=== PATIENT | female | born 1960 | race Caucasian/White ===

== ENCOUNTER → 2016-05-07 | Outpatient (CLI) | payer BC | LOC: WI 08:04 | PROVIDERS: ATTEND Physician Assistant | DX: Z12.31 Encounter for screening mammogram for malignant neoplasm of breast (principal) | CPT/HCPCS: 77067; G0202 ==

== ENCOUNTER → 2016-08-13 | Outpatient (CLI) | payer BC ==
--- NOTE | 2016-08-13 14:34 | RADIOLOGY REPORT (SQ) ---
EXAM DESCRIPTION: LUMBAR SPINE COMPLETE COMPLETED DATE/TIME: 08/13/2016 2:28 pm REASON FOR STUDY: LOW BACK PAIN M54.5 LOW BACK PAIN COMPARISON: None. NUMBER OF VIEWS: Five views including obliques. TECHNIQUE: AP, lateral, oblique, and sacral radiographic images acquired of the lumbar spine. LIMITATIONS: None. FINDINGS: MINERALIZATION: Normal. SEGMENTATION: Normal. No transitional anatomy. ALIGNMENT: Normal. VERTEBRAE: Maintained height. No fracture or worrisome bone lesion. DISCS: There is very mild disc space narrowing at L3-L4. POSTERIOR ELEMENTS: Pedicles and facets are intact. No pars defect or posterior arch defects. HARDWARE: None in the spine. PARASPINAL SOFT TISSUES: Normal. PELVIS: Intact as visualized. No fractures or worrisome bone lesions. SI joints intact. OTHER: No other significant finding. IMPRESSION: Mild disc space narrowing at L3-L4. No other significant findings. TECHNICAL DOCUMENTATION: JOB ID: [id number] [employer]- All Rights Reserved
== END ==
LOC: OD 14:06
PROVIDERS: ATTEND Physician Assistant
DX: M54.5 Low back pain (principal)
CPT/HCPCS: 72110

== ENCOUNTER 2016-09-01 11:08 | Day surgery (SDC) | payer BC ==
[~2016-09-01 11:08] MED LIST: PROPOFOL INJ 200 MG/20 ML VIAL IV ONE
--- NOTE | 2016-09-01 13:02 | Operative Report ---
Operative Report DATE OF SURGERY: 09/01/16 Operative Report: The risks, benefits and alternatives of the procedure including risks of bleeding, perforation requiring surgery are explained to the patient detail and informed consent is obtained. Patient was taken back to the endoscopy suite and placed in the left, lateral decubital position. Timeout was called. Propofol medication was administered. A rectal examination was done which did not reveal any masses, tears or fissures. An Olympus videoscope was inserted into the patient's rectum. The scope was then carefully guided all the way to the cecum. The cecum was identified by the usual anatomical landmarks including the ileocecal valve as well as the appendiceal office. Photodocumentation is obtained. Prep was good. The scope was then sequentially pulled back via the rest segments of the colon including the ascending colon, hepatic flexure, transverse colon, splenic flexure, descending colon and finding to the rectosigmoid portions of the colon. Retroflexion maneuver was performed. The risks benefits and alternatives of the procedure explained to the patient in detail and informed consent is obtained. A GIF Olympus video scope was inserted into the patient's mouth and hypopharynx, the esophagus is identified intubated and insufflated, the scope was then advanced through the esophagus stomach and duodenum ,retroflexion maneuver is done, the esophagus stomach and first and second portions of the duodenum examined PREOPERATIVE DIAGNOSIS: Colorectal cancer screening. Noncardiac chest pain rule out peptic ulcer disease. POSTOPERATIVE DIAGNOSIS: Diverticulosis. Internal hemorrhoids. Small polyp in the sigmoid status post removal with biopsy forceps. Gastritis status post biopsy rule out Helicobacter pylori OPERATION: Colonoscopy with biopsy. EGD with biopsy SURGEON: CHAGO DE LOS SANTOS ANESTHESIA: LMAC TISSUE REMOVED OR ALTERED: Gastric mucosal specimen obtained. Polyp retrieved COMPLICATIONS: None. ESTIMATED BLOOD LOSS: None. INTRAOPERATIVE FINDINGS: As described above. PROCEDURE: Patient tolerated the procedure well. No immediate postprocedure complications are noted. Patient discharged in good condition. Discharge date 09/01/2016. Discharge diet: Regular. Discharge activity: Regular. 2-3 week follow-up to discuss findings. Patient is instructed to call the office or proceed to the emergency room should there be any further problems or questions. Surveillance colonoscopy in 5 years. We will await pathology of the polyp.
[2016-09-01 13:25] VITALS: BP 111/56
== END 2016-09-01 13:30 | disposition home or self-care (01) ==
LOC: END 11:08
PROVIDERS: ATTEND Internal Medicine Gastroenterology
PROC: 0DB68ZX Excision of Stomach, Via Natural or Artificial Opening Endoscopic, Diagnostic (ICD-10-PCS; principal; 2016-09-01 14:30)
PROC: 0DBN8ZX Excision of Sigmoid Colon, Via Natural or Artificial Opening Endoscopic, Diagnostic (ICD-10-PCS; 2016-09-01 14:30)
DX: Z12.11 Encounter for screening for malignant neoplasm of colon (principal); K57.30 Diverticulosis of large intestine without perforation or abscess without bleeding; K64.8 Other hemorrhoids; K63.5 Polyp of colon; K29.50 Unspecified chronic gastritis without bleeding; I10 Essential (primary) hypertension; R07.89 Other chest pain; E87.5 Hyperkalemia; M19.90 Unspecified osteoarthritis, unspecified site; F32.9 Major depressive disorder, single episode, unspecified; F41.9 Anxiety disorder, unspecified; Z87.891 Personal history of nicotine dependence; Z79.899 Other long term (current) drug therapy
CPT/HCPCS: 43239; 45380; 88342 ×2; 88305 ×2; J2704; 740

== ENCOUNTER → 2017-01-12 | Outpatient (CLI) | payer BC ==
--- NOTE | 2017-01-12 10:35 | RADIOLOGY REPORT (SQ) ---
EXAM DESCRIPTION: PARANASAL SINUSES COMPLETED DATE/TIME: 01/12/2017 10:02 am REASON FOR STUDY: CHRONIC SINUSITIS (J32.9) R06.00 DYSPNEA, UNSPECIFIED COMPARISON: None. NUMBER OF VIEWS: Three views. TECHNIQUE: Images of the paranasal sinuses acquired. LIMITATIONS: None. FINDINGS: ORBITS: No fracture. No foreign body. SINUSES: No mucosal thickening. No air fluid levels. FACIAL BONES: No fracture. OTHER: Mild leftward nasal septal deviation IMPRESSION: NO FOREIGN BODY OR FRACTURE. NO PLAIN RADIOGRAPHIC EVIDENCE FOR SINUS DISEASE. TECHNICAL DOCUMENTATION: JOB ID: [id number] [employer]- All Rights Reserved
--- NOTE | 2017-01-12 10:52 | RADIOLOGY REPORT (SQ) ---
EXAM DESCRIPTION: CHEST PA/LAT COMPLETED DATE/TIME: 01/12/2017 10:02 am REASON FOR STUDY: DYSPNEA (R06.00) COMPARISON: None. EXAM PARAMETERS: NUMBER OF VIEWS: two views TECHNIQUE: Digital Frontal and Lateral radiographic views of the chest acquired. RADIATION DOSE: NA LIMITATIONS: none FINDINGS: LUNGS AND PLEURA: Chronic appearing blunting left lateral costophrenic sulcus with adjacen t lung parenchymal scarring. No acute infiltrates. No pleural effusion. No pneumothorax. MEDIASTINUM AND HILAR STRUCTURES: Moderate size retrocardiac hiatal hernia. No masses or contour abn ormalities. HEART AND VASCULAR STRUCTURES: Heart normal size. No evidence for failure. BONES: No acute findings. HARDWARE: None in the chest. OTHER: No other significant finding. IMPRESSION: Chronic appearing pleural thickening and lung base bandlike scarring in the left lateral costophrenic sulcus. No acute infiltrates. TECHNICAL DOCUMENTATION: JOB ID: [id number] [employer]- All Rights Reserved
--- NOTE | 2017-01-12 11:38 | RADIOLOGY REPORT (SQ) ---
EXAM DESCRIPTION: NM LUNG VENT/PERF SCAN COMPLETED DATE/TIME: 01/12/2017 11:03 am REASON FOR STUDY: DYSPNEA (R06.00) R06.00 DYSPNEA, UNSPECIFIED COMPARISON: None. RADIONUCLIDE AND DOSE: 5 millicuries TC-99m MAA Intravenous 30 millicuries TC-99m DTPA Inhaled aerosol TECHNIQUE: Eight views of the lungs acquired post ventilation of DTPA aerosol. Eight matching views of the lungs acquired following injection of MAA. LIMITATIONS: None. FINDINGS: VENTILATION: Symmetric and homogeneous distribution of DTPA aerosol during ventilatory pha se. No significant areas of photopenia. PERFUSION: Perfusion images with normal homogenous activity and no wedge-shaped or segmental defects. No ventilation-perfusion mismatches. OTHER: No other significant finding. IMPRESSION: NORMAL VENTILATION-PERFUSION LUNG SCAN. NEGATIVE FOR PULMONARY EMBOLI. TECHNICAL DOCUMENTATION: JOB ID: [id number] [employer]- All Rights Reserved
== END ==
LOC: RAD 09:35
PROVIDERS: ATTEND Internal Medicine Pulmonary Disease
DX: R06.00 Dyspnea, unspecified (principal)
CPT/HCPCS: 71020; 70220; 78582; A9540; A9567; Q9969

== ENCOUNTER → 2017-01-12 | Outpatient (CLI) | payer BC ==
[2017-01-12 12:46] LABS: ABSOLUTE BASOPHILS # (AUTO) 0.1 10^3/uL (0.0-0.2); ABSOLUTE EOSINOPHILS # (AUTO) 0.2 10^3/uL (0.0-0.6); ABSOLUTE LYMPHOCYTES (AUTO) 1.9 10^3/uL (0.5-4.7); ABSOLUTE MONOCYTES (AUTO) 0.5 10^3/uL (0.1-1.4); BASOPHILS % (AUTO) 0.9 % (0-2); EOSINOPHILS % (AUTO) 2.4 % (0-6); HEMATOCRIT 39.4 % (36.0-47.0); HEMOGLOBIN 13.4 g/dL (12.0-15.5); HGB HCT DIFFERENCE 0.8; LYMPHOCYTES % (AUTO) 24.7 % (13-45); MEAN CORPUSCULAR HEMOGLOBIN 27.7 pg (27.0-33.4); MEAN CORPUSCULAR HGB CONC 33.9 g/dL (32.0-36.0); MEAN CORPUSCULAR VOLUME 82 fl (80-97); MONOCYTES % (AUTO) 6.8 % (3-13); RED BLOOD COUNT 4.83 10^6/uL (3.72-5.28); SEGMENTED NEUTROPHILS % (AUTO) 65.2 % (42-78); WHITE BLOOD COUNT 7.7 10^3/uL (4.0-10.5)
[2017-01-13 08:41] LABS: COMPLEMENT C3 177 mg/dL (82-167); COMPLEMENT C4 35 mg/dL (14-44)
[2017-01-13 10:44] LABS: IMMUNOGLOBULIN E 22 IU/mL (0-100); IMMUNOGLOBULIN G 1028 mg/dL (700-1600)
[2017-01-13 12:38] LABS: PTT-LA 35.3 sec (0.0-51.9); THROMBIN TIME 19.6 sec (0.0-23.0)
[2017-01-13 12:55] LABS: LUPUS PANEL INTERPRETATION Comment: (.)
[2017-01-13 13:38] LABS: JO-1 ANTIBODY (ANACOMP) <0.2 AI (0.0-0.9)
[2017-01-13 17:37] LABS: CYTOPLASMIC (C-ANCA) <1:20 titer (Neg:<1:20)
[2017-01-14 05:40] LABS: M001-IGE PENICILLIUM CHRYSOGEN <0.10 kU/L (Class 0); M002-IGE CLADOSPORIUM HERBARUM <0.10 kU/L (Class 0); M003-IGE ASPERGILLUS FUMIGATUS <0.10 kU/L (Class 0); M004-IGE MUCOR RACEMOSUS <0.10 kU/L (Class 0); M005-IGE CANDIDA ALBICANS <0.10 kU/L (Class 0); M006-IGE ALTERNARIA ALTERNATA <0.10 kU/L (Class 0); M008-IGE SETOMELANOMMA ROSTRAT <0.10 kU/L (Class 0); M009-IGE FUSARIUM PROLIFERATUM <0.10 kU/L (Class 0); M012-IGE AUREOBASIDI PULLULANS <0.10 kU/L (Class 0); M013-IGE PHOMA BETAE <0.10 kU/L (Class 0); M014-IGE EPICOCCUM PURPURASCEN <0.10 kU/L (Class 0)
[2017-01-14 08:52] LABS: M010-IGE STEMPHYLIUM HERBARUM <0.10 kU/L (Class 0)
== END ==
LOC: LAB 11:45
PROVIDERS: ATTEND Internal Medicine Pulmonary Disease
DX: R06.00 Dyspnea, unspecified (principal); Z83.2 Family history of diseases of the blood and blood-forming organs and certain disorders involving the immune mechanism
CPT/HCPCS: 36415; 82784; 82785; 83520; 85025; 85597; 85598; 85613; 85730; 85732; 86003; 86021; 86146; 86147; 86148; 86160; 86225; 86235; 86849

== ENCOUNTER → 2017-01-13 | Outpatient (CLI) | payer BC ==
--- NOTE | 2017-01-13 09:22 | RADIOLOGY REPORT (SQ) ---
EXAM DESCRIPTION: ED SWALLOW COMPLETED DATE/TIME: 01/13/2017 8:31 am REASON FOR STUDY: DYSPHAGIA (R47.02) R47.02 DYSPHASIA COMPARISON: None. TECHNIQUE: Videofluoroscopic swallowing examination was performed in conjunction with speech patholo gy. Videofluoroscopic imaging was obtained and reviewed and these are the findings: RADIATION DOSE: 1 minute 8 seconds of fluoroscopy was used. 1 images saved to PACS. LIMITATIONS: None FINDINGS: The patient was brought into the fluoro room and placed upright on a modified barium swall ow chair. The patient was then given multiple consistencies mixed with barium to swallow under live fluoroscopic video guidance. According to the Speech Pathologist there was no penetration or aspirat ion. IMPRESSION: NO EVIDENCE OF PENETRATION OR ASPIRATION.PLEASE SEE SPEECH PATHOLOGIST REPORT FOR OTHER FINDINGS AND RECOMMENDATIONS. COMMENT: Quality ID 145: Final reports for procedures using fluoroscopy that document radiation exp osure indices, or exposure time and number of fluorographic images (if radiation exposure indices are not available) TECHNICAL DOCUMENTATION: JOB ID: [id number] [employer]- All Rights Reserved
--- NOTE | 2017-01-13 12:25 | ST Modified Barium Swallow ---
Recommendation - Recommendations Recommendations: Oral and pharyngeal swallow skills within normal limits. No modifications of interventions indicated. Medical Diagnoses - Medical Diagnoses Medical Diagnosis Description & ICD-10 Code(s): dysphagia R47.02, dysphagia R13.10 Other Medical Diagnoses/Co-Morbidities: Patient reports hiatal hernia, reflux, shortness of breath, HTN, high cholesterol, depression, anxiety ST Modified Barium Swallow - General Date: 01/13/17 Referring Physician: Isaías Martínez MD Risks/Precautions: None - History History obtained from: Patient -: Medical - Patient acted as historian. Reports sensation of things "sticking" after meals at times. Occasional coughing noted as well. Patient does report history of reflux and hiatal hernia. Medications: Patient reports cymbacort, rescue inhaler, dexalant, and participation in pain management. Allergies: Patient reports codeine allergy - Functional Status Prior Functional Status: INDEPENDENT: feeding - independent Current Functional Limitations: feeding - independent - Subjective Patient/caregiver goal(s): safe swallow Cognitive-Linguistic Function: WNL Speech Intelligibility: WNL Current Nutritional Means: PO Current PO diet: Regular Current symptoms: Coughing Pain: Patient reports, 2/5 - back pain - Objective Assessment: Upright, Left Lateral - Food Trials Used Food trials used: Thin liquids, Pureed, Regular The patient: Was Able to Self Feed - Oral-Motor Skills Dentition: Full Laryngeal Function: Volitional Cough - wfl, Volitional Swallow - wfl - Assessment Oral prep: Normal Labial closure: Adequate Leakage: None Mastication: Adequate Lingual Movement: Normal Oral stage: Normal for this Procedure - Pharyngeal Stage Initiation of Pharyngeal Stage Reflex: Normal Decreased laryngeal elevation: No Reduced Velopharyngeal Closure: no Reduced pressure generation: No reduced tongue-based retraction: No Pre-swallow pooling in valleculae: None Pre-Swallow pooling in pyriforms: None Reduced Thyro-Hyoid approximation: No Reduced epiglottic excursion: No Reduced pharyngeal peristalsis/contraction: No Post-swallow residulas vallecular: None Post-Swallow residuals in pyriforms: None Post-Swallow Residuals: no residuals - Fall Risk Assessment Medications/Conditions that increase fall risks include: Antidepressants, sedatives, anti-arrhythmic, diuretic, benzodiazipenes, neuroleptics. BP regulation problems, cardiac problems, balance or gait deficits, neurological problems. Is patient considered at risk for falls: no Fall Risk Actions Taken: No action needed - Behavioral Observations During evaluation process patient: was pleasant, was cooperative, able to answer questions, provided medical history Mental Status: Alert & Oriented X3 - Treatment / Educational Needs: Treatment/Education Needs: Treatment consisted of patient education on the role of the Speech Pathologist. Patient's plan of care and golas were communicated as well as scheduling and attendance policies. Recommendations for initial home program were shared. Patient demonstrated understanding and verbalized agreement. - Impression/Summary Laryngeal Penetration: No Tracheal Aspiration: no Patient presents with: Normal swallow at eval Risk of Aspiration: Minimal Risk of nutritional compromise: WNL Evaluation and Findings: Swallowing skills within functional limits for all trials. - Recommendations Solid diet recommendations: Regular Liquid Diet Modification: Thin Dysphagia therapy with [employer] FOOD VENDING SERVICE: no Recommended techniques: Fully Upright During Meal Supervision: Independent - Time Total Time: 20 - Plan of Care Patient to follow-up with referring physician: Yes Strategies to optimize patient understanding include:: ongoing assessment of educational needs, implementation of educational strategies, and re-education. - - -: Thank you for the opportunity to work with this patient and his/her family. Should you have any questions about this patient's plan or progress, I can be reached at [phone]. Charge G Code? - - -: No
== END ==
LOC: RAD 07:45
PROVIDERS: ATTEND Internal Medicine Pulmonary Disease
DX: R47.02 Dysphasia (principal)
CPT/HCPCS: 74230

== ENCOUNTER → 2017-01-19 | Outpatient (CLI) | payer BC ==
--- NOTE | 2017-01-19 11:02 | RADIOLOGY REPORT (SQ) ---
EXAM DESCRIPTION: UGI SERIES COMPLETED DATE/TIME: 01/19/2017 8:52 am REASON FOR STUDY: DYSPHAGIA R47.02 DYSPHASIA COMPARISON: Speech pathology video assisted swallowing study 01/13/2017 Ventilation-perfusion scan 01/12/2017 Paranasal sinuses radiographs 01/12/2017 Two-view chest 01/12/2017 TECHNIQUE: Under fluoroscopic guidance, patient ingested effervescent granules followed by thick and thin barium. Fluoroscopic spot images and routine radiographic images acquired and stored on PACS. 12 MM BARIUM TABLET GIVEN: Yes. No significant delay in passage. LIMITATIONS: None. FLUOROSCOPY TIME: FLUORO TIME: 3.4 minutes 21 digital images saved to PACS. FINDINGS: NEUROMUSCULAR COORDINATION OF SWALLOW: Normal. No aspiration. ESOPHAGEAL MOTILITY: Normal peristalsis. No esophageal spasm. ESOPHAGEAL MUCOSA: Normal mucosa without masses or ulceration. GASTRO-ESOPHAGEAL JUNCTION: There is a moderate size sliding hiatal hernia containing the stomach fun dus. Just above the hiatal hernia, Schatzki's ring or distal esophageal stricture is present without impeding passage of the 12 mm barium tablet. Intermittent mild gastroesophageal reflux into the dis regine esophagus STOMACH: Normal without masses or ulcerations. GASTRIC OUTLET: No delay in emptying. Normal pylorus. DUODENAL BULB: Normal distention. No spasm or ulceration. DUODENUM: Mucosa normal. No extrinsic masses or malrotation. PROXIMAL SMALL BOWEL: Mucosa normal. No extrinsic masses or malrotation. NON-GI TRACT STRUCTURES: Degenerative changes cervical spine OTHER: No other significant finding. IMPRESSION: Moderate size retrocardiac hiatal hernia containing the stomach fundus. Distal esophageal Schatzki's ring without impeding passage of the 12 mm barium tablet Intermittent gastroesophageal reflux on today's study COMMENT: Quality ID 145: Final reports for procedures using fluoroscopy that document radiation exp osure indices, or exposure time and number of fluorographic images (if radiation exposure indices are not available) TECHNICAL DOCUMENTATION: JOB ID: [id number] [employer]- All Rights Reserved
== END ==
LOC: RAD 07:45
PROVIDERS: ATTEND Internal Medicine Pulmonary Disease
DX: R47.02 Dysphasia (principal)
CPT/HCPCS: 74247

== ENCOUNTER → 2017-02-09 | Outpatient (CLI) | payer BC ==
--- NOTE | 2017-02-09 10:36 | RADIOLOGY REPORT (SQ) ---
EXAM DESCRIPTION: CT CHEST WITHOUT COMPLETED DATE/TIME: 02/09/2017 9:19 am REASON FOR STUDY: R93.8 ABNORMAL FINDINGS ON DIAGNOSTIC IMAGING OF BODY STRUCTURES R06.00 DYSPNEA, UNSPECIFIED R93.8 ABNORMAL FINDINGS ON DIAGNOSTIC IMAGING OF BODY STRUCT COMPARISON: 01/12/2017 TECHNIQUE: CT scan performed of the chest without intravenous contrast. Images reviewed with lung, soft tissue and bone windows. Reconstructed coronal and sagittal MPR images reviewed. All images st ored on PACS. All CT scanners at this facility use dose modulation, iterative reconstruction, and/or weight based d osing when appropriate to reduce radiation dose to as low as reasonably achievable (ALARA). [facility]: Dose Right [facility]: CareDose [facility]: Dose Right [facility]: Teradose 4D [facility]: [employer] RADIATION DOSE: CT Rad equipment meets quality standard of care and radiation dose reduction techniq ues were employed. CTDIvol: 17.2 mGy. DLP: 652 mGy-cm. mGy. LIMITATIONS: No technical limitations. FINDINGS: LUNGS AND PLEURA: There is mild subsegmental atelectasis in the left lower lobe. There is no infiltrate or effusion. There is no mass. HILAR AND MEDIASTINAL STRUCTURES: A small hiatal hernia is present. There is no mediastinal or hilar mass or adenopathy. HEART AND VASCULAR STRUCTURES: No aneurysm. No pericardial effusion. UPPER ABDOMEN: No significant findings. Limited exam. THYROID AND OTHER SOFT TISSUES: No masses. No adenopathy. BONES: No significant finding. HARDWARE: None in the chest. OTHER: No other significant findings. IMPRESSION: Subsegmental atelectasis. Small hiatal hernia. No acute cardiopulmonary disease. TECHNICAL DOCUMENTATION: JOB ID: [id number] Quality ID # [id number]: Final reports with documentation of one or more dose reduction techniques (e.g., Au tomated exposure control, adjustment of the mA and/or kV according to patient size, use of iterative reconstruction technique) 2010 [employer]- All Rights Reserved
== END ==
LOC: RAD 08:48
PROVIDERS: ATTEND Internal Medicine Pulmonary Disease
DX: J98.11 Atelectasis (principal); K44.9 Diaphragmatic hernia without obstruction or gangrene; R93.8 Abnormal findings on diagnostic imaging of other specified body structures
CPT/HCPCS: 71250

== ENCOUNTER 2017-05-20 16:21 | Inpatient (IN) | payer BC ==
--- NOTE | 2017-05-20 17:59 | ER Document Report ---
ED Medical Screen (RME) - General Chief Complaint: Shortness Of Breath Stated Complaint: SHORTNESS OF BREATH Time Seen by Provider: 05/20/17 17:55 Mode of Arrival: Ambulatory Information source: Patient Notes: Patient complains of increasing shortness of breath. She states is been going on for several months. Patient has had unremarkable VQ scan as well as chest CT. She is also had recent labs that were unremarkable. Patient states she had a "bad" pneumonia several years ago that required surgical debridement. She states since that time she has had shortness of breath. TRAVEL OUTSIDE OF THE [place] IN LAST 30 DAYS: No - Related Data Allergies/Adverse Reactions: codeine [Codeine] Adverse Reaction (Mild, Verified 09/01/16 11:29) n/v Past Medical History - Social History Chew tobacco use (# tins/day): No Frequency of alcohol use: None Drug Abuse: None - Past Medical History Cardiac Medical History: Reports: Hx Hypertension Denies: Hx Coronary Artery Disease, Hx Heart Attack Pulmonary Medical History: Reports: Hx Asthma - CHILD, Hx Pneumonia - HOSPITALIZED Denies: Hx Bronchitis, Hx COPD - HAVE SOME SOB FROM TIME TO TIME Neurological Medical History: Denies: Hx Cerebrovascular Accident, Hx Seizures Renal/ Medical History: Denies: Hx Peritoneal Dialysis Musculoskeltal Medical History: Reports Hx Arthritis Past Surgical History: Denies: Hx Hysterectomy, Hx Pacemaker - Immunizations Hx Diphtheria, Pertussis, Tetanus Vaccination: Yes Physical Exam - Vital signs Vitals: Temp Pulse Resp BP Pulse Ox 98.0 F 103 H 16 135/67 H 94 05/20/17 16:40 05/20/17 16:40 05/20/17 16:40 05/20/17 16:40 05/20/17 16:40 Course - Vital Signs Vital signs: Temp Pulse Resp BP Pulse Ox 98.0 F 103 H 16 135/67 H 94 05/20/17 16:40 05/20/17 16:40 05/20/17 16:40 05/20/17 16:40 05/20/17 16:40 Doctor's Discharge - Discharge Referrals: DENISE CERVANTES PA-C [Primary Care Provider] - Follow up as needed
[2017-05-20 18:45] LABS: ABSOLUTE EOSINOPHILS # (AUTO) 0.1 10^3/uL (0.0-0.6); ABSOLUTE LYMPHOCYTES (AUTO) 1.6 10^3/uL (0.5-4.7); ABSOLUTE MONOCYTES (AUTO) 0.6 10^3/uL (0.1-1.4); ABSOLUTE NEUT (AUTO) 6.4 10^3/uL (1.7-8.2); BASOPHILS % (AUTO) 0.5 % (0-2); EOSINOPHILS % (AUTO) 0.9 % (0-6); HEMATOCRIT 45.1 % (36.0-47.0); HEMOGLOBIN 14.9 g/dL (12.0-15.5); MEAN CORPUSCULAR HEMOGLOBIN 27.5 pg (27.0-33.4); MEAN CORPUSCULAR VOLUME 83 fl (80-97); MONOCYTES % (AUTO) 7.4 % (3-13); PLATELET COUNT 311 10^3/uL (150-450); RED BLOOD COUNT 5.41 10^6/uL (3.72-5.28); RED CELL DISTRIBUTION WIDTH 15.4 % (11.5-14.0); SEGMENTED NEUTROPHILS % (AUTO) 73.2 % (42-78); TOTAL CELLS COUNTED % (AUTO) 100 %; WHITE BLOOD COUNT 8.7 10^3/uL (4.0-10.5)
--- NOTE | 2017-05-20 18:50 | RADIOLOGY REPORT (SQ) ---
EXAM DESCRIPTION: CHEST PA/LAT COMPLETED DATE/TIME: 05/20/2017 6:40 pm REASON FOR STUDY: sob COMPARISON: 01/12/2017 EXAM PARAMETERS: NUMBER OF VIEWS: two views TECHNIQUE: Digital Frontal and Lateral radiographic views of the chest acquired. RADIATION DOSE: NA LIMITATIONS: none FINDINGS: LUNGS AND PLEURA: No opacities, masses or pneumothorax. No pleural effusion. MEDIASTINUM AND HILAR STRUCTURES: Small hiatal hernia. HEART AND VASCULAR STRUCTURES: Heart normal size. No evidence for failure. BONES: No acute findings. HARDWARE: None in the chest. OTHER: No other significant finding. IMPRESSION: Small hiatal hernia. No acute cardiopulmonary disease. TECHNICAL DOCUMENTATION: JOB ID: [id number] [employer]- All Rights Reserved Reading location - IP/workstation name: [email or web address]
[2017-05-20 19:01] LABS: ALANINE AMINOTRANSFERASE 26 U/L (9-52); ALBUMIN 4.5 g/dL (3.5-5.0); ALKALINE PHOSPHATASE 82 U/L (38-126); ANION GAP 9 (5-19); ASPARTATE AMINO TRANSFERASE 26 U/L (14-36); BILIRUBIN,DIRECT 0.1 mg/dL (0.0-0.4); BILIRUBIN,TOTAL 0.6 mg/dL (0.2-1.3); BLOOD UREA NITROGEN 13 mg/dL (7-20); CARBON DIOXIDE 31 mmol/L (22-30); CHLORIDE 105 mmol/L (98-107); GLUCOSE 108 mg/dL (75-110); POTASSIUM 3.9 mmol/L (3.6-5.0); SODIUM 145.4 mmol/L (137-145); TOTAL PROTEIN 7.6 g/dL (6.3-8.2)
--- NOTE | 2017-05-20 19:25 | EKG REPORT ---
SEVERITY:- NORMAL ECG - SINUS RHYTHM : Confirmed by: Mayank Murphy MD 20-May-2017 19:24:44
--- NOTE | 2017-05-20 20:46 | ER Document Report ---
ED Respiratory Problem - General Chief Complaint: Shortness Of Breath Stated Complaint: SHORTNESS OF BREATH Time Seen by Provider: 05/20/17 17:55 Mode of Arrival: Ambulatory Notes: Patient is a 48-year-old female that comes emergency department for chief complaint of 2 weeks of worsening dyspnea on exertion. She states that just walking into the next room she will feel short of breath, if she keeps walking she does begin to feel a tightness in her chest. She states now she can barely get across a room. She was seen by her PCP today, found to drop into the 80s ( pulse oxygen saturation) on room air, and sent to the ED. She states she has had worsening dyspnea on exertion, she was evaluated first by cardiology last year, had a negative stress test and cardiac catheterization, was then referred to pulmonology where she had a noncontrast CAT scan of the chest and was placed on Advair after doing pulmonary function tests. She states she stopped smoking many years ago, she did have a very bad pneumonia many years ago and she was told this might be the cause of her problems. She has hypertension, hyperlipidemia, hiatal hernia, fibromyalgia. She does have family history of blood clots, she denies any recent swelling in her lower extremities, recent travel, recent surgery. TRAVEL OUTSIDE OF THE [place] IN LAST 30 DAYS: No - Related Data Allergies/Adverse Reactions: codeine [Codeine] Adverse Reaction (Mild, Verified 09/01/16 11:29) n/v Past Medical History - General Information source: Patient - Social History Smoking Status: Former Smoker Chew tobacco use (# tins/day): No Frequency of alcohol use: None Drug Abuse: None Lives with: Family Family History: Reviewed & Not Pertinent Patient has suicidal ideation: No Patient has homicidal ideation: No - Past Medical History Cardiac Medical History: Reports: Hx Hypertension Denies: Hx Coronary Artery Disease, Hx Heart Attack Pulmonary Medical History: Reports: Hx Asthma - CHILD, Hx Pneumonia - HOSPITALIZED Denies: Hx Bronchitis, Hx COPD - HAVE SOME SOB FROM TIME TO TIME Neurological Medical History: Denies: Hx Cerebrovascular Accident, Hx Seizures Renal/ Medical History: Denies: Hx Peritoneal Dialysis Musculoskeltal Medical History: Reports Hx Arthritis Past Surgical History: Denies: Hx Hysterectomy, Hx Pacemaker - Immunizations Hx Diphtheria, Pertussis, Tetanus Vaccination: Yes Hx Pneumococcal Vaccination: 02/23/14 Review of Systems - Review of Systems Constitutional: No symptoms reported EENT: No symptoms reported Cardiovascular: See HPI Respiratory: See HPI Gastrointestinal: No symptoms reported Genitourinary: No symptoms reported Female Genitourinary: No symptoms reported Musculoskeletal: No symptoms reported Skin: No symptoms reported Hematologic/Lymphatic: No symptoms reported Neurological/Psychological: No symptoms reported Physical Exam - Vital signs Vitals: Temp Pulse Resp BP Pulse Ox 98.0 F 103 H 16 135/67 H 94 05/20/17 16:40 05/20/17 16:40 05/20/17 16:40 05/20/17 16:40 05/20/17 16:40 - General General appearance: Appears well In distress: None - HEENT Head: Normocephalic, Atraumatic Eyes: Normal Extraocular movements intact: Yes Eyelashes: Normal Pupils: PERRL Nasal: Normal Mouth/Lips: Normal Mucous membranes: Normal Pharynx: Normal Neck: Normal - Respiratory Respiratory status: No respiratory distress Breath sounds: Normal. No: Decreased air movement, Wheezing - Cardiovascular Rhythm: Regular, Tachycardia Heart sounds: Normal auscultation, S1 appreciated, S2 appreciated Murmur: No Normal capillary refill: Yes - Abdominal Inspection: Normal Tenderness: Nontender. No: Tender, Guarding - Back Back: Normal, Nontender. No: Tender - Extremities General upper extremity: Normal inspection, Nontender, Normal ROM, Normal strength General lower extremity: Normal inspection, Nontender, Normal ROM, Normal strength. No: Edema - Neurological Neuro grossly intact: Yes Cognition: Normal Orientation: AAOx4 [place] Coma Scale Eye Opening: Spontaneous [place] Coma Scale Verbal: Oriented [place] Coma Scale Motor: Obeys Commands [place] Coma Scale Total: 15 Speech: Normal Cranial nerves: Normal Cerebellar coordination: Normal Motor strength normal: LUE, RUE, LLE, RLE Additional motor exam normals: Equal registration rep Sensory: Normal - Skin Skin Temperature: Warm Skin Moisture: Dry Skin Color: Normal Course - Re-evaluation Re-evalutation: 05/20/17 20:48 EKG shows sinus rhythm at a rate of 92, no T-wave inversions or ST segment changes in consecutive leads, normal axis, normal OH interval and QTC. Patient initially tachycardic on arrival mildly, she has borderline hypoxia at 94% on room air. If she ambulates she has very labored breathing and become slightly pale. Chest x-ray unremarkable, CBC, chemistry, troponin unremarkable. BNP is not concerning the elevated, patient has no rales on exam, presentation and history do not specifically suggest congestive heart failure. Because of patient's initial tachycardia, hypoxia, and dyspnea on exertion I discussed with patient and recommended that we perform a CTA. Patient did have a CAT scan last year but was noncontrasted and she only had a V/Q examination at the time. Patient states agreement with plan. CTA showing bilateral pulmonary emboli, otherwise no acute findings. Beginning Lovenox. Because of patient's dyspnea on exertion, oxygen requirement, will discuss with hospitalist for admission. Patient is very grateful for the information and in agreement with this plan. Discussed with Dr. Connor, hospitalist, patient will be admitted to telemetry observation - Vital Signs Vital signs: Temp Pulse Resp BP Pulse Ox 98.4 F 83 16 96/48 L 97 05/21/17 03:36 05/21/17 03:36 05/21/17 03:36 05/21/17 03:36 05/21/17 03:36 - Laboratory Result Diagrams: 05/20/17 18:15 05/20/17 18:15 Laboratory results interpreted by me: 05/20/17 05/20/17 18:15 18:15 RBC 5.41 H RDW 15.4 H Sodium 145.4 H Carbon Dioxide 31 H Discharge - Discharge Clinical Impression: Hypoxia, Dyspnea on exertion Pulmonary emboli Qualifiers: Pulmonary embolism type: other Chronicity: acute Acute cor pulmonale presence: without acute cor pulmonale Qualified Code(s): I26.99 - Other pulmonary embolism without acute cor pulmonale Condition: Stable Disposition: ADMITTED OBSERVATION Admitting Provider: Hospitalist Unit Admitted: Telemetry
[2017-05-20 21:20] LABS: CREATINE KINASE MB 0.54 ng/mL (<4.55); NT PRO BNP 234 pg/mL (5-900)
[2017-05-20 21:21] LABS: TROPONIN I < 0.012 ng/mL
--- NOTE | 2017-05-20 22:04 | RADIOLOGY REPORT (SQ) ---
EXAM DESCRIPTION: CTA CHEST COMPLETED DATE/TIME: 05/20/2017 9:32 pm REASON FOR STUDY: dyspnea on exertion, chest tight, family hx PEs COMPARISON: 2017. Recent radiographs. TECHNIQUE: CT scan of the chest performed using helical scanning technique with dynamic intravenous contrast injection. Images reviewed with lung, soft tissue and bone windows. Reconstructed coronal and sagittal MPR images reviewed. Additional 3 dimensional post-processing performed to develop Maximal Intensity Projection images (IN P). All images stored on PACS. All CT scanners at this facility use dose modulation, iterative reconstruction, and/or weight based d osing when appropriate to reduce radiation dose to as low as reasonably achievable (ALARA). [facility]: Dose Right [facility]: CareDose [facility]: Dose Right [facility]: Teradose 4D [facility]: Labtrip CONTRAST TYPE AND DOSE: contrast/concentration: Isovue 370.00 mg/ml; Total Contrast Delivered: 75.0 ml; Total Saline Delivered: 70.0 ml Contrast bolus adequate for pulmonary arteries and aorta. RENAL FUNCTION: GFR > 60. RADIATION DOSE: CT Rad equipment meets quality standard of care and radiation dose reduction techniq ues were employed. CTDIvol: 14.9 - 25.4 mGy. DLP: 886 mGy-cm. . LIMITATIONS: None. FINDINGS: LUNGS AND PLEURA: 3 mm nodule left lower lobe. Left lingula and left lower lobe scarring. No pleural effusion or pneumothorax. AORTA AND GREAT VESSELS: No aneurysm. Contrast bolus not optimized for the aorta. HEART: Mild pericardial fluid. Minimal coronary calcification. PULMONARY ARTERIES: Positive for pulmonary embolus, upper and lower lobe bilateral areas of segmental and subsegmental clot. No saddle embolus. HILAR AND MEDIASTINAL STRUCTURES: Shotty nodes, none of which look abnormally enlarged. Large hiatal hernia. HARDWARE: None in the chest. UPPER ABDOMEN: No significant findings. Limited exam. THYROID AND OTHER SOFT TISSUES: No masses. No adenopathy. BONES: No acute or significant finding. 3D MIPS: Confirm above findings. OTHER: No other significant finding. IMPRESSION: 1. Positive for bilateral pulmonary emboli. 2. 3 mm nonspecific left lower lobe nodule . Followup might be considered as per below FLE[facility]CHNER CRITERIA FOR FOLLOW-UP OF PULMONARY NODULES Incidentally detected new nodules in persons 35 or older. HIGH RISK: History of smoking or other known risk factors. <6mm single solid nodule: LOW RISK: no routine followup. HIGH RISK: optional CT 12 mo. Results of positive for pulmonary embolus called to MICHAEL GUAN at21:56 on 05/20/2017. Category of Critical Exam: Positive for pulmonary embolus. COMMENT: Quality ID # [id number]: Final reports with documentation of one or more dose reduction techniques (e.g., Automated exposure control, adjustment of the mA and/or kV according to patient size, use of iterative reconstruction technique) TECHNICAL DOCUMENTATION: JOB ID: [id number] [employer] All Rights Reserved Reading location - IP/workstation name: [email or web address]
[2017-05-20] MEDS ORDERED: ENOXAPARIN SODIUM INJ 100 MG/1 ML DISP.SYRIN SUBCUT ONE ×2 (22:19→22:45)
[2017-05-20] MEDS ORDERED: TRAMADOL HCL 50 MG TABLET PO PRN (22:28)
[2017-05-20] MEDS ORDERED: ONDANSETRON HCL INJ/PF 4 MG/2 ML SDV IV PRN (22:31)
[2017-05-20] MEDS ORDERED: IPRATROPIUM/ALBUTEROL 0.5-2.5 MG/3 ML AMPUL NEB PRN (22:31)
[2017-05-20] MEDS ORDERED: ACETAMINOPHEN 325 MG TABLET PO PRN (22:31)
[2017-05-20] MEDS ORDERED: METOPROLOL TARTRATE 50 MG TABLET PO ONE (22:45)
[2017-05-20] MEDS ORDERED: ZOLPIDEM TARTRATE 5 MG TABLET PO ONE (22:45)
[2017-05-20] MEDS ORDERED: BUDESONIDE/FORMOTEROL 160-4.5 MCG 60 PUFF/6 GM MDI IH ONE (22:45)
[2017-05-20] MEDS ORDERED: CLONAZEPAM 1 MG TABLET PO PRN (22:45)
[2017-05-20] MEDS ORDERED: PREGABALIN 50 MG CAPSULE PO ONE (22:45)
[2017-05-20] MEDS ORDERED: DOCUSATE SODIUM 100 MG CAPSULE PO ONE (23:00)
--- NOTE | 2017-05-20 23:31 | PDOC H&P ---
History of Present Illness Admission Date/PCP: 05/20/17 22:35 DENISE CERVANTES PA-C Patient complains of: Shortness of breath History of Present Illness: ABEBE MARCH is a 56 year old female with a past medical history of morbid obesity, COPD, dyslipidemia, anxiety depression, fibromyalgia and chronic pain. Patient presents with 2 weeks of worsening dyspnea on exertion and walking limited by shortness of breath. She denies fever, rhinorrhea, cough, sore throat, uncontrolled GERD or chest pain. She denies new medications, leg swelling, trauma, prolonged sitting and is up-to-date with mammography and colonoscopy. In the emergency room she has an unremarkable workup with exception to a CT angiography of the chest notable for bilateral pulmonary emboli. She is ordered Lovenox and referred to the hospitalist for admission. Denies chest pain Past Medical History Cardiac Medical History: Reports: Hypertension Denies: Coronary Artery Disease, Myocardial Infarction Pulmonary Medical History: Reports: Asthma - CHILD, Pneumonia - HOSPITALIZED Denies: Bronchitis Neurological Medical History: Denies: Seizures Endocrine Medical History: Reports: Obesity Musculoskeltal Medical History: Reports: Arthritis Hematology: Denies: Anemia Past Surgical History Past Surgical History: Denies: Hysterectomy, Pacemaker Social History Information Source: Patient Smoking Status: Former Smoker Frequency of Alcohol Use: None Drugs: None - Advance Directive Resuscitation Status: Full Code Family History Family History: Other - Deep vein thrombosis Parental Family History Reviewed: Yes Children Family History Reviewed: Yes Sibling(s) Family History Reviewed.: Yes Medication/Allergy Home Medications: Ascorbic Acid [Vitamin C 500 mg Tablet] 500 mg PO DAILY 08/27/16 Aspirin [Aspirin EC] 81 mg PO DAILY 08/27/16 Atorvastatin Calcium 40 mg PO DAILY 08/27/16 Clonazepam [Klonopin] 0.5 mg PO BID PRN 08/27/16 Metaxalone 800 mg PO TID PRN 08/27/16 Metoprolol Tartrate [Lopressor 50 mg Tablet] 75 mg PO Q12H 08/27/16 Multivitamin [Multivitamins] 1 each PO DAILY 08/27/16 [place]-3 Fatty Acids/Fish Oil [Fish Oil 1,000 Mg Capsule] 1 each PO DAILY Tramadol HCl [Ultram 50 mg Tablet] 50 mg PO Q6 PRN 08/27/16 Vilazodone HCl [Viibryd] 40 mg PO DAILY 08/27/16 Zolpidem Tartrate 10 mg PO QHS 08/27/16 Albuterol Sulfate [Ventolin Hfa] 2 inh IN Q4 PRN 05/20/17 Budesonide/Formoterol Fumarate [Symbicort 160-4.5 Mcg Inhaler] 2 inh IN BID Dexlansoprazole [Dexilant 60 mg Capsule] 1 tab PO DAILY 05/20/17 Pregabalin [Lyrica] 1 tab PO QHS 05/20/17 Allergies/Adverse Reactions: codeine [Codeine] Adverse Reaction (Mild, Verified 09/01/16 11:29) n/v Review of Systems Constitutional: ABSENT: chills, fever(s), headache(s), weight gain, weight loss Eyes: ABSENT: visual disturbances Ears: ABSENT: hearing changes Cardiovascular: ABSENT: chest pain, dyspnea on exertion, edema, orthropnea, palpitations Respiratory: ABSENT: cough, hemoptysis Gastrointestinal: ABSENT: abdominal pain, constipation, diarrhea, hematemesis, hematochezia, nausea, vomiting Genitourinary: ABSENT: dysuria, hematuria Musculoskeletal: ABSENT: joint swelling Integumentary: ABSENT: rash, wounds Neurological: ABSENT: abnormal gait, abnormal speech, confusion, dizziness, focal weakness, syncope Psychiatric: ABSENT: anxiety, depression, homidical ideation, suicidal ideation Endocrine: ABSENT: cold intolerance, heat intolerance, polydipsia, polyuria Hematologic/Lymphatic: ABSENT: easy bleeding, easy bruising Physical Exam Vital Signs: Temp Pulse Resp BP Pulse Ox 98.0 F 103 H 16 135/67 H 94 05/20/17 16:40 05/20/17 16:40 05/20/17 16:40 05/20/17 16:40 05/20/17 16:40 General appearance: PRESENT: no acute distress, morbidly obese, well-developed, well-nourished Head exam: PRESENT: atraumatic, normocephalic Eye exam: PRESENT: conjunctiva pink, EOMI, PERRLA. ABSENT: scleral icterus Ear exam: PRESENT: normal external ear exam Mouth exam: PRESENT: moist, tongue midline Neck exam: ABSENT: carotid bruit, JVD, lymphadenopathy, thyromegaly Respiratory exam: PRESENT: clear to auscultation kaci. ABSENT: rales, rhonchi, wheezes Cardiovascular exam: PRESENT: RRR. ABSENT: diastolic murmur, rubs, systolic murmur Pulses: PRESENT: normal dorsalis pedis pul Vascular exam: PRESENT: normal capillary refill GI/Abdominal exam: PRESENT: normal bowel sounds, soft. ABSENT: distended, guarding, mass, organolmegaly, rebound, tenderness Rectal exam: PRESENT: deferred Extremities exam: PRESENT: full ROM. ABSENT: calf tenderness, clubbing, pedal edema Neurological exam: PRESENT: alert, awake, oriented to person, oriented to place , oriented to time, oriented to situation, CN II-XII grossly intact. ABSENT: motor sensory deficit Psychiatric exam: PRESENT: appropriate affect, normal mood. ABSENT: homicidal ideation, suicidal ideation Skin exam: PRESENT: dry, intact, warm. ABSENT: cyanosis, rash Results Impressions: Chest X-Ray 05/20/17 17:58 IMPRESSION: Small hiatal hernia. No acute cardiopulmonary disease. Chest/Abdomen CTA 05/20/17 20:43 IMPRESSION: 1. Positive for bilateral pulmonary emboli. 2. 3 mm nonspecific left lower lobe nodule. Followup might be considered as per below FLE[facility]CHNER CRITERIA FOR FOLLOW-UP OF PULMONARY NODULES Incidentally detected new nodules in persons 35 or older. HIGH RISK: History of smoking or other known risk factors. <6mm single solid nodule: LOW RISK: no routine followup. HIGH RISK: optional CT 12 mo. Results of positive for pulmonary embolus called to MICHAEL GUAN at21:56 on . Category of Critical Exam: Positive for pulmonary embolus. Assessment & Plan - Diagnosis (1) Pulmonary emboli Qualifiers: Pulmonary embolism type: other Chronicity: acute Acute cor pulmonale presence: without acute cor pulmonale Qualified Code(s): I26.99 - Other pulmonary embolism without acute cor pulmonale Is this a current diagnosis for this admission?: Yes Plan: Lovenox 1 mg/kg ordered, follow-up CBC consider transition to oral agent. (2) Morbid obesity Is this a current diagnosis for this admission?: Yes Plan: Morbid obesity will evaluate for metabolic cause with evaluation of thyroid function and dietitian consultation (3) Dyspnea on exertion Is this a current diagnosis for this admission?: Yes Plan: Secondary to #1, supplemental oxygen, albuterol, incentive spirometr. - Time Time Spent: 30 to 50 Minutes - Inpatient Certification Medical Necessity: Need Close Monitoring Due to Risk of Patient Decompensation
[2017-05-20 23:36] LABS: INTERNATIONAL RATION (INR) 0.85; PARTIAL THROMBOPLASTIN TIME 24.8 SEC (23.5-35.8); PROTHROMBIN TIME 12.3 SEC (11.4-15.4)
[2017-05-21] MEDS ORDERED: METOPROLOL TARTRATE 50 MG TABLET PO SCH ×2 (10:00→22:00)
[2017-05-21] MEDS ORDERED: NON-FORMULARY UNIT-DOSE MEDICATION PO SCH ×2 (10:00)
[2017-05-21] MEDS ORDERED: ATORVASTATIN CALCIUM 40 MG TABLET PO SCH ×2 (10:00→22:00)
[2017-05-21] MEDS ORDERED: BUDESONIDE/FORMOTEROL 160-4.5 MCG 60 PUFF/6 GM MDI IH SCH ×2 (10:00)
[2017-05-21] MEDS ORDERED: ASCORBIC ACID 500 MG TABLET PO SCH (10:00)
[2017-05-21] MEDS: MAGNESIUM OXIDE 400 MG TABLET PO SCH ×2 (10:11→17:51)
[2017-05-21] MEDS: ASPIRIN 81 MG TABLET, ENT COATED PO SCH (10:12)
[2017-05-21] MEDS: DOCUSATE SODIUM 100 MG CAPSULE PO SCH ×2 (10:19→21:13)
[2017-05-21] MEDS: ENOXAPARIN SODIUM INJ 100 MG/1 ML DISP.SYRIN SUBCUT SCH ×2 (10:19→22:10)
[2017-05-21] MEDS ORDERED: (PENDING PHARMACY ID) (Clonazepam [Klonopin] 0.5 MG) PO PRN (10:36)
[2017-05-21] MEDS ORDERED: TRAMADOL HCL 50 MG TABLET PO PRN (10:36)
[2017-05-21] MEDS ORDERED: METAXALONE 800 MG TABLET PO PRN (10:36)
[2017-05-21] MEDS ORDERED: ONDANSETRON HCL INJ/PF 4 MG/2 ML SDV IV PRN (11:00)
--- NOTE | 2017-05-21 12:39 | PDOC PROGRESS REPORT ---
Subjective Progress Note for:: 05/21/17 Subjective:: 56-year-old female with past medical history of Morbid obesity COPD Dyslipidemia Anxiety Depression Fibromyalgia Chronic pain Arthritis Hypertension The patient presented with a two-week history of worsening dyspnea on exertion. She is reportedly up-to-date with her mammography and colonoscopy and denies any change in medications leg swelling trauma or prolonged sitting. In the emergency room CT angiography showed bilateral pulmonary emboli and she was started on Lovenox. Reason For Visit: PE Physical Exam Vital Signs: Temp Pulse Resp BP Pulse Ox 98.4 F 82 16 96/48 L 97 05/21/17 03:36 05/21/17 07:00 05/21/17 03:36 05/21/17 03:36 05/21/17 03:36 Intake & Output 05/20/17 05/21/17 05/22/17 06:59 06:59 06:59 Weight 100.4 kg General appearance: PRESENT: no acute distress, obese Head exam: PRESENT: atraumatic, normocephalic Eye exam: PRESENT: EOMI Ear exam: PRESENT: normal external ear exam Mouth exam: PRESENT: neck supple Neck exam: ABSENT: tenderness, tracheal deviation Respiratory exam: PRESENT: clear to auscultation kaci, unlabored. ABSENT: wheezes Cardiovascular exam: PRESENT: RRR GI/Abdominal exam: PRESENT: normal bowel sounds, soft. ABSENT: tenderness Rectal exam: PRESENT: deferred Extremities exam: ABSENT: calf tenderness, pedal edema Neurological exam: PRESENT: alert, awake, oriented to person, oriented to place , oriented to time, oriented to situation Psychiatric exam: PRESENT: anxious Results Impressions: Chest X-Ray 05/20/17 17:58 IMPRESSION: Small hiatal hernia. No acute cardiopulmonary disease. Chest/Abdomen CTA 05/20/17 20:43 IMPRESSION: 1. Positive for bilateral pulmonary emboli. 2. 3 mm nonspecific left lower lobe nodule. Followup might be considered as per below FLEISCHNER CRITERIA FOR FOLLOW-UP OF PULMONARY NODULES Incidentally detected new nodules in persons 35 or older. HIGH RISK: History of smoking or other known risk factors. <6mm single solid nodule: LOW RISK: no routine followup. HIGH RISK: optional CT 12 mo. Results of positive for pulmonary embolus called to MICHAEL GUAN at21:56 on . Category of Critical Exam: Positive for pulmonary embolus. Assessment & Plan - Diagnosis (1) Pulmonary emboli Qualifiers: Pulmonary embolism type: other Chronicity: acute Acute cor pulmonale presence: without acute cor pulmonale Qualified Code(s): I26.99 - Other pulmonary embolism without acute cor pulmonale Is this a current diagnosis for this admission?: Yes Plan: Continue Lovenox (2) Chronic pain Is this a current diagnosis for this admission?: Yes Plan: Continue Lyrica and tramadol (3) Dyspnea on exertion Is this a current diagnosis for this admission?: Yes Plan: Due to pulmonary embolism. (4) Morbid obesity Is this a current diagnosis for this admission?: Yes (5) Hypertension Is this a current diagnosis for this admission?: Yes Plan: Continue metoprolol. - Time Time Spent with patient: 35 or more minutes
[2017-05-21 19:25] LABS: APPEARANCE,URINE CLEAR; BILIRUBIN,URINE NEGATIVE (NEGATIVE); COLOR,URINE YELLOW; GLUCOSE, URINE NEGATIVE (NEGATIVE); KETONES,URINE NEGATIVE (NEGATIVE)
[2017-05-21 19:26] LABS: PROTEIN,URINE NEGATIVE (NEGATIVE); URINE SPECIFIC GRAVITY 1.025
[2017-05-21 19:27] LABS: UROBILINOGEN,URINE NEGATIVE mg/dL (<2.0)
[2017-05-21 19:28] LABS: LEUKOCYTE ESTERASE,URINE TRACE (NEGATIVE); NITRITE,URINE NEGATIVE (NEGATIVE)
[2017-05-21] MEDS ORDERED: PREGABALIN 50 MG CAPSULE PO SCH (22:00)
[2017-05-21] MEDS ORDERED: ZOLPIDEM TARTRATE 5 MG TABLET PO SCH (22:00)
[2017-05-21] MEDS ORDERED: (PENDING PHARMACY ID) (Zolpidem Tartrate [Ambien] 10 MG) PO SCH (22:00)
[2017-05-21] MEDS: ATORVASTATIN CALCIUM 40 MG TABLET PO SCH (22:10)
[2017-05-21] MEDS: BUDESONIDE/FORMOTEROL 160-4.5 MCG 60 PUFF/6 GM MDI IH SCH (22:11)
[2017-05-21] MEDS: ZOLPIDEM TARTRATE 5 MG TABLET PO SCH (22:11)
[2017-05-21] MEDS: METOPROLOL TARTRATE 25 MG TABLET PO SCH (22:11)
[2017-05-21] MEDS: PREGABALIN 50 MG CAPSULE PO SCH (22:11)
[2017-05-22 05:08] LABS: HEMATOCRIT 39.4 % (36.0-47.0); HEMOGLOBIN 13.3 g/dL (12.0-15.5); MEAN CORPUSCULAR HEMOGLOBIN 27.6 pg (27.0-33.4); MEAN CORPUSCULAR HGB CONC 33.6 g/dL (32.0-36.0); MEAN CORPUSCULAR VOLUME 82 fl (80-97); PLATELET COUNT 262 10^3/uL (150-450); RED CELL DISTRIBUTION WIDTH 15.5 % (11.5-14.0); WHITE BLOOD COUNT 7.2 10^3/uL (4.0-10.5)
[2017-05-22] MEDS: LANSOPRAZOLE 30 MG TAB.RAP.DR PO SCH (05:35)
[2017-05-22] MEDS ORDERED: (PENDING PHARMACY ID) (Vilazodone Hcl [Viibryd] 40 MG) PO SCH ×2 (10:00)
[2017-05-22] MEDS: MULTIVITAMIN TABLET PO SCH (11:29)
[2017-05-22] MEDS: ENOXAPARIN SODIUM INJ 100 MG/1 ML DISP.SYRIN SUBCUT SCH ×2 (11:29→22:24)
[2017-05-22] MEDS: BUDESONIDE/FORMOTEROL 160-4.5 MCG 60 PUFF/6 GM MDI IH SCH ×2 (11:29→22:24)
[2017-05-22] MEDS: DOCUSATE SODIUM 100 MG CAPSULE PO SCH ×2 (11:30→17:30)
[2017-05-22] MEDS: METOPROLOL TARTRATE 25 MG TABLET PO SCH ×2 (11:30→22:24)
[2017-05-22] MEDS: MAGNESIUM OXIDE 400 MG TABLET PO SCH ×2 (11:30→17:30)
[2017-05-22] MEDS: OMEGA-3 ACID ETHYL ESTERS 1 GM CAPSULE PO SCH (11:31)
[2017-05-22] MEDS: ASPIRIN 81 MG TABLET, ENT COATED PO SCH (11:31)
[2017-05-22] MEDS: ASCORBIC ACID 500 MG TABLET PO SCH (11:31)
[2017-05-22 12:17] LABS: APPEARANCE,URINE SLIGHTLY-CLOUDY; BILIRUBIN,URINE NEGATIVE (NEGATIVE); COLOR,URINE YELLOW; GLUCOSE, URINE NEGATIVE (NEGATIVE); KETONES,URINE NEGATIVE (NEGATIVE); LEUKOCYTE ESTERASE,URINE NEGATIVE (NEGATIVE); NITRITE,URINE NEGATIVE (NEGATIVE); PROTEIN,URINE NEGATIVE (NEGATIVE); URINE SPECIFIC GRAVITY 1.026; UROBILINOGEN,URINE NEGATIVE mg/dL (<2.0)
--- NOTE | 2017-05-22 15:47 | PDOC PROGRESS REPORT ---
Subjective Progress Note for:: 05/22/17 Subjective:: 56-year-old female with past medical history of Morbid obesity COPD Dyslipidemia Anxiety Depression Fibromyalgia Chronic pain Arthritis Hypertension The patient presented with a two-week history of worsening dyspnea on exertion. She is reportedly up-to-date with her mammography and colonoscopy and denies any change in medications leg swelling trauma or prolonged sitting. In the emergency room CT angiography showed bilateral pulmonary emboli and she was started on Lovenox. She continues to have some non specific chest discomfort and dyspnea on exertion. She opted to start Coumadin. This will be started tonight. Reason For Visit: PE Physical Exam Vital Signs: Temp Pulse Resp BP Pulse Ox 97.5 F 72 16 114/60 95 05/22/17 11:44 05/22/17 13:30 05/22/17 13:30 05/22/17 11:44 05/22/17 13:30 Intake & Output 05/21/17 05/22/17 05/23/17 06:59 06:59 06:59 Intake Total 530 Balance 530 Weight 100.4 kg General appearance: PRESENT: obese Eye exam: PRESENT: PERRLA Ear exam: PRESENT: normal external ear exam Mouth exam: PRESENT: moist Neck exam: ABSENT: tracheal deviation Respiratory exam: PRESENT: clear to auscultation kaci, unlabored Cardiovascular exam: PRESENT: RRR GI/Abdominal exam: PRESENT: normal bowel sounds, soft. ABSENT: tenderness Rectal exam: PRESENT: deferred Neurological exam: PRESENT: alert, awake, oriented to person, oriented to place Psychiatric exam: PRESENT: anxious Skin exam: ABSENT: rash Results Laboratory Results: 05/22/17 04:02 05/21/17 05/22/17 05/22/17 18:45 04:02 11:50 WBC 7.2 RBC 4.80 Hgb 13.3 Hct 39.4 MCV 82 MCH 27.6 MCHC 33.6 RDW 15.5 H Plt Count 262 Urine Color YELLOW YELLOW Urine Appearance CLEAR SLIGHTLY-CLOUDY Urine pH 7.0 6.0 Ur Specific [place] 1.025 1.026 Urine Protein NEGATIVE NEGATIVE Urine Glucose (UA) NEGATIVE NEGATIVE Urine Ketones NEGATIVE NEGATIVE Urine Blood NEGATIVE NEGATIVE Urine Nitrite NEGATIVE NEGATIVE Ur Leukocyte Esterase TRACE H NEGATIVE Urine WBC (Auto) 1 3 Urine RBC (Auto) 1 1 Impressions: Chest X-Ray 05/20/17 17:58 IMPRESSION: Small hiatal hernia. No acute cardiopulmonary disease. Chest/Abdomen CTA 05/20/17 20:43 IMPRESSION: 1. Positive for bilateral pulmonary emboli. 2. 3 mm nonspecific left lower lobe nodule. Followup might be considered as per below FLEISCHNER CRITERIA FOR FOLLOW-UP OF PULMONARY NODULES Incidentally detected new nodules in persons 35 or older. HIGH RISK: History of smoking or other known risk factors. <6mm single solid nodule: LOW RISK: no routine followup. HIGH RISK: optional CT 12 mo. Results of positive for pulmonary embolus called to MICHAEL GUAN at21:56 on . Category of Critical Exam: Positive for pulmonary embolus. Assessment & Plan - Diagnosis (1) Pulmonary emboli Qualifiers: Pulmonary embolism type: other Chronicity: acute Acute cor pulmonale presence: without acute cor pulmonale Qualified Code(s): I26.99 - Other pulmonary embolism without acute cor pulmonale Is this a current diagnosis for this admission?: Yes Plan: Continue Lovenox, start warfarin. Monitor INR (2) Chronic pain Is this a current diagnosis for this admission?: Yes Plan: Continue Lyrica and Tramadol (3) Dyspnea on exertion Is this a current diagnosis for this admission?: Yes Plan: Due to pulmonary embolism. (4) Morbid obesity Is this a current diagnosis for this admission?: Yes (5) Hypertension Is this a current diagnosis for this admission?: Yes Plan: Continue metoprolol. - Time Time Spent with patient: 25-34 minutes - Inpatient Certification Based on my medical assessment, after consideration of the patient's comorbidities, presenting symptoms, or acuity I expect that the services needed warrant INPATIENT care.: Yes Medical Necessity: Need Close Monitoring Due to Risk of Patient Decompensation, Risk of Complication if Not Cared For in Hospital
[2017-05-22] MEDS ORDERED: WARFARIN SODIUM 5 MG TABLET PO SCH (22:00)
[2017-05-22] MEDS: ATORVASTATIN CALCIUM 40 MG TABLET PO SCH (22:24)
[2017-05-22] MEDS: PREGABALIN 50 MG CAPSULE PO SCH (22:24)
[2017-05-22] MEDS: ZOLPIDEM TARTRATE 5 MG TABLET PO SCH (22:24)
[2017-05-23] MEDS: LANSOPRAZOLE 30 MG TAB.RAP.DR PO SCH (06:17)
[2017-05-23 07:12] LABS: INTERNATIONAL RATION (INR) 0.94; PROTHROMBIN TIME 13.3 SEC (11.4-15.4)
--- NOTE | 2017-05-23 09:01 | PDOC DISCHARGE SUMMARY ---
General - Admit/Disc Date/PCP Admission Date/Primary Care Provider: 05/22/17 15:35 DENISE CERVANTES PA-C Discharge Date: 05/23/17 - Discharge Diagnosis (1) Pulmonary emboli Is this a current diagnosis for this admission?: Yes (2) Chronic pain Is this a current diagnosis for this admission?: Yes (3) Dyspnea on exertion Is this a current diagnosis for this admission?: Yes (4) Morbid obesity Is this a current diagnosis for this admission?: Yes (5) Hypertension Is this a current diagnosis for this admission?: Yes (6) Depression Is this a current diagnosis for this admission?: Yes (7) Fibromyalgia Is this a current diagnosis for this admission?: Yes - Additional Information Resuscitation Status: Full Code Discharge Diet: Cardiac Discharge Activity: Activity As Tolerated, Balance Activity w/Rest Home Medications: Albuterol Sulfate [Proair HFA] 2 puff IH Q4HP PRN 05/21/17 Ascorbic Acid [Vitamin C 500 mg Tablet] 500 mg PO DAILY 05/21/17 Atorvastatin Calcium [Lipitor 40 mg Tablet] 40 mg PO DAILY 05/21/17 Budesonide/Formoterol Fumarate [Symbicort HFA 160-4.5 mcg Inhaler 6 gm] 2 puff IH BID 05/21/17 Clonazepam [Klonopin] 0.5 mg PO BIDP PRN 05/21/17 Dexlansoprazole [Dexilant 60 mg Capsule] 60 mg PO DAILY 05/21/17 Metaxalone [Skelaxin 800 mg Tablet] 800 mg PO Q8HP PRN 05/21/17 Metoprolol Tartrate [Lopressor 50 mg Tablet] 75 mg PO Q12 05/21/17 Multivitamin [Multiple Vitamins] 1 tab PO DAILY 05/21/17 [place]-3 Acid Ethyl Esters [Lovaza 1 gm Capsule] 1 gm PO DAILY 05/21/17 Pregabalin [Lyrica 50 mg Capsule] 50 mg PO QHS 05/21/17 Tramadol HCl [Ultram 50 mg Tablet] 50 mg PO Q6HP PRN 05/21/17 Vilazodone HCl [Viibryd] 40 mg PO DAILY 05/21/17 Zolpidem Tartrate [Ambien] 10 mg PO QHS 05/21/17 Clonazepam [Klonopin 1 mg Tablet] 0.5 mg PO BIDP PRN tablet 05/23/17 Enoxaparin Sodium [Lovenox Inj 100 mg/1 ml Disp.syrin] 100 mg SUBCUT Q12 disp.syrin 05/23/17 Magnesium Oxide [Mag-Ox 400 mg Tablet] 400 mg PO BID tablet 05/23/17 Warfarin Sodium [Coumadin 5 mg Tablet] 5 mg PO QHS tablet 05/23/17 History of Present Illness History of Present Illness: 56-year-old female with past medical history of Morbid obesity COPD Dyslipidemia Anxiety Depression Fibromyalgia Chronic pain Arthritis Hypertension The patient presented with a two-week history of worsening dyspnea on exertion. She is reportedly up-to-date with her mammography and colonoscopy and denies any change in medications leg swelling trauma or prolonged sitting. In the emergency room CT angiography showed bilateral pulmonary emboli and she was started on Lovenox. After discussing the risks versus benefits of Coumadin versus Xarelto or Eliquis , the patient opted to try Coumadin. She was taught how to give herself Lovenox shots and was started on warfarin. She was given a prescription for 5 mg warfarin daily with an INR check on May 25. She is to continue Lovenox at 100 mg subcu every 12 hours until INR becomes therapeutic. The patient is to follow-up with her primary care physician. She is still is anxious about the PE, her questions were answered. She is feeling better overall. She is not hypoxic on rest or with exertion. The patient is stable for discharge home. Hospital Course Hospital Course: See above Physical Exam Vital Signs: Temp Pulse Resp BP Pulse Ox 97.8 F 69 16 116/49 L 93 05/23/17 07:52 05/23/17 07:52 05/23/17 07:52 05/23/17 07:52 05/23/17 07:52 Intake & Output 05/22/17 05/23/17 05/24/17 06:59 06:59 06:59 Intake Total 854 Balance 854 Weight 103.1 kg General appearance: PRESENT: no acute distress, obese Eye exam: PRESENT: EOMI Mouth exam: PRESENT: neck supple Respiratory exam: PRESENT: clear to auscultation kaci, symmetrical, unlabored Cardiovascular exam: PRESENT: RRR GI/Abdominal exam: PRESENT: soft. ABSENT: tenderness Results Impressions: Chest X-Ray 05/20/17 17:58 IMPRESSION: Small hiatal hernia. No acute cardiopulmonary disease. Chest/Abdomen CTA 05/20/17 20:43 IMPRESSION: 1. Positive for bilateral pulmonary emboli. 2. 3 mm nonspecific left lower lobe nodule. Followup might be considered as per below FLEISCHNER CRITERIA FOR FOLLOW-UP OF PULMONARY NODULES Incidentally detected new nodules in persons 35 or older. HIGH RISK: History of smoking or other known risk factors. <6mm single solid nodule: LOW RISK: no routine followup. HIGH RISK: optional CT 12 mo. Results of positive for pulmonary embolus called to MICHAEL GUAN at21:56 on . Category of Critical Exam: Positive for pulmonary embolus. Qualifiers - * PATEINT BEING DISCHARGED WITH ANY OF THE FOLLOWING DIAGNOSIS?: VTE (PE or DVT) VTE patient discharged on overlapping Therapy?: Yes Plan Time Spent: Greater than 30 Minutes
[2017-05-23 09:32] VITALS: BP 114/65
[2017-05-23] MEDS: ENOXAPARIN SODIUM INJ 100 MG/1 ML DISP.SYRIN SUBCUT SCH (10:07)
[2017-05-23] MEDS: DOCUSATE SODIUM 100 MG CAPSULE PO SCH (10:07)
[2017-05-23] MEDS: ASCORBIC ACID 500 MG TABLET PO SCH (10:08)
[2017-05-23] MEDS: METOPROLOL TARTRATE 25 MG TABLET PO SCH (10:08)
[2017-05-23] MEDS: MAGNESIUM OXIDE 400 MG TABLET PO SCH (10:08)
[2017-05-23] MEDS: MULTIVITAMIN TABLET PO SCH (10:08)
[2017-05-23] MEDS: OMEGA-3 ACID ETHYL ESTERS 1 GM CAPSULE PO SCH (10:08)
[2017-05-23] MEDS: BUDESONIDE/FORMOTEROL 160-4.5 MCG 60 PUFF/6 GM MDI IH SCH (10:08)
[2017-05-23] MEDS: ASPIRIN 81 MG TABLET, ENT COATED PO SCH (10:08)
== END 2017-05-23 11:02 | disposition home or self-care (01) | DRG 176 ==
LOC: ER 16:21 → EH 22:35 → 4S 05-21 00:29 → OBSVTOIN 05-22 15:35
PROVIDERS: ADMIT Internal Medicine; ATTEND Internal Medicine
DX: I26.99 Other pulmonary embolism without acute cor pulmonale (principal); M79.7 Fibromyalgia; E66.01 Morbid (severe) obesity due to excess calories; F32.9 Major depressive disorder, single episode, unspecified; I10 Essential (primary) hypertension; Z68.39 Body mass index [BMI] 39.0-39.9, adult; J44.9 Chronic obstructive pulmonary disease, unspecified; E78.5 Hyperlipidemia, unspecified; M19.90 Unspecified osteoarthritis, unspecified site; Z79.899 Other long term (current) drug therapy
CPT/HCPCS: 36415; 71046; 71275; 80053; 81001; 82550; 82553; 83880; 84484; 85025; 85027; 85610; 85730; 93005; 93010; 96372; 99285; G0378; J1650; J3490

== ENCOUNTER → 2017-09-30 | Day surgery (SDC) | payer BC ==
[~2017-09-30] MED LIST changes: +LIDOCAINE 2% JELLY 5 ML TUBE ONE; -PROPOFOL INJ 200 MG/20 ML VIAL IV ONE
== END ==
LOC: END 07:58
PROVIDERS: ATTEND Surgery
DX: K21.9 Gastro-esophageal reflux disease without esophagitis (principal); F41.9 Anxiety disorder, unspecified; M79.7 Fibromyalgia; G89.29 Other chronic pain; R06.02 Shortness of breath; J44.9 Chronic obstructive pulmonary disease, unspecified; I10 Essential (primary) hypertension; E78.00 Pure hypercholesterolemia, unspecified; Z88.5 Allergy status to narcotic agent; Z02.89 Encounter for other administrative examinations; Z86.711 Personal history of pulmonary embolism; Z87.891 Personal history of nicotine dependence; Z79.899 Other long term (current) drug therapy; Z79.51 Long term (current) use of inhaled steroids; Z79.891 Long term (current) use of opiate analgesic; Z79.01 Long term (current) use of anticoagulants
CPT/HCPCS: 91010

== ENCOUNTER → 2017-11-16 | Outpatient (CLI) | payer BC ==
--- NOTE | 2017-11-16 13:02 | RADIOLOGY REPORT (SQ) ---
EXAM DESCRIPTION: CT CHEST WITH COMPLETED DATE/TIME: 11/16/2017 10:25 am REASON FOR STUDY: LOCALIZED EDEMA;DVT R91.1 SOLITARY PULMONARY NODULE COMPARISON: CT chest 05/20/2017, 02/09/2017 TECHNIQUE: CT scan of the chest performed using helical scanning technique with dynamic intravenous contrast injection. Images reviewed with lung, soft tissue and bone windows. Reconstructed coronal and sagittal MPR and MIP images reviewed. All images stored on PACS. All CT scanners at this facility use dose modulation, iterative reconstruction, and/or weight based d osing when appropriate to reduce radiation dose to as low as reasonably achievable (ALARA). [facility]: Dose Right [facility]: CareDose [facility]: Dose Right [facility]: Teradose 4D [facility]: BMP [employer] CONTRAST TYPE AND DOSE: contrast/concentration: Isovue 350.00 mg/ml; Total Contrast Delivered: 80.0 ml; Total Saline Delivered: 55.0 ml RENAL FUNCTION: Creatinine 0.9 RADIATION DOSE: CT Rad equipment meets quality standard of care and radiation dose reduction techniq ues were employed. CTDIvol: 14.7 mGy. DLP: 541 mGy-cm. . LIMITATIONS: Routine CT chest with contrast, not ordered as a CT angio chest FINDINGS: LUNGS AND PLEURA: No opacities, nodules, masses. No pneumothorax. No effusions. 3 mm nod ule seen on CT chest 05/20/2017 left posterior lung base is no longer identified HILAR AND MEDIASTINAL STRUCTURES: No identified masses or abnormal nodes. Moderate size retrocardiac hiatal hernia containing the stomach fundus HEART AND VASCULAR STRUCTURES: No aneurysm or dissection. No central pulmonary emboli. No pericardi al effusion. HARDWARE: None in the chest. UPPER ABDOMEN: No significant findings. Limited exam. THYROID AND OTHER SOFT TISSUES: No masses. No adenopathy. BONES: No significant finding. OTHER: No other significant finding. IMPRESSION: No acute findings TECHNICAL DOCUMENTATION: JOB ID: [id number] Quality ID # 436: Final reports with documentation of one or more dose reduction techniques (e.g., Au tomated exposure control, adjustment of the mA and/or kV according to patient size, use of iterative reconstruction technique) 2010 [employer]- All Rights Reserved Reading location - IP/workstation name: [email or web address]
== END ==
LOC: RAD 09:49
PROVIDERS: ATTEND Internal Medicine Hematology & Oncology
DX: R91.1 Solitary pulmonary nodule (principal)
CPT/HCPCS: 71260; 82565

== ENCOUNTER → 2018-01-20 | Outpatient (CLI) | payer BC ==
[2018-01-22 09:01] LABS: COMPLEMENT C3 171 mg/dL (82-167)
[2018-01-22 12:38] LABS: ANTICHROMATIN AB <0.2 AI (0.0-0.9); CENTROMERE B AB <0.2 AI (0.0-0.9); JO-1 ANTIBODY (ANACOMP) <0.2 AI (0.0-0.9); SJOGREN'S ANTI-SS-B AB <0.2 AI (0.0-0.9); SJOGREN'S SS-A ANTIBODY <0.2 AI (0.0-0.9)
[2018-01-22 17:36] LABS: CYTOPLASMIC (C-ANCA) <1:20 titer (Neg:<1:20)
[2018-01-24 07:39] LABS: ATYPICAL PANCA <1:20 titer (Neg:<1:20); DNA DOUBLE STRAND ANTIBODY ANA 1 IU/mL (0-9); PERINUCLEAR (P-ANCA) <1:20 titer (Neg:<1:20)
== END ==
LOC: OD 16:05
PROVIDERS: ATTEND Internal Medicine Pulmonary Disease
DX: R06.00 Dyspnea, unspecified (principal); I26.99 Other pulmonary embolism without acute cor pulmonale
CPT/HCPCS: 36415; 85379; 86021; 86160; 86225; 86235; 86430

== ENCOUNTER → 2018-02-02 | Outpatient (CLI) | payer BC ==
--- NOTE | 2018-02-02 16:10 | WOMENS IMAGING REPORT ---
EXAM DESCRIPTION: BILAT SCREENING MAMMO W/CAD COMPLETED DATE/TIME: 02/02/2018 11:23 am REASON FOR STUDY: BILATERAL SCREENING MAMMO /Z12.31 Z12.31 ENCNTR SCREEN MAMMOGRAM FOR MALIGNANT NE OPLASM OF LEV COMPARISON: Multiple since 2010 TECHNIQUE: Standard craniocaudal and mediolateral oblique views of each breast recorded using [employer] l acquisition. LIMITATIONS: None. FINDINGS: No masses, calcifications or architectural distortion. No areas of suspicion. Read with the assistance of CAD. .[facility] - R2 [employer] Version 1.3 .[facility] Imaging - R2 [employer] Version 1.3 .[facility] Imaging - R2 Cenova Version 2.4 .[facility] [place] R2 C[employer]ova Version 2.4 .[facility] - R2 [employer] Version 9.2 IMPRESSION: NORMAL MAMMOGRAM. BIRADS 1. BREAST DENSITY: b. There are scattered areas of fibroglandular density. BIRAD: 1 NEGATIVE RECOMMENDATION: ROUTINE SCREENING Please continue yearly bilateral screening tomosynthesis/mammography January 2019 COMMENT: The patient has been notified of the results by letter per SA requirements. Additional no tification policies are in place for contacting patient with suspicious or incomplete findings. Quality ID #225: The [employer] recommends an annual screening mammogram for women aged 40 years or over. This facility utilizes a reminder system to ensure that all patients receive reminder letters, and/or direct phone calls for appointments. This includes reminders for routine scr eening mammograms, diagnostic mammograms, or other Breast Imaging Interventions when appropriate. Th is patient will be placed in the appropriate reminder system. The [employer] (ACR) has developed recommendations for screening MRI of the breast s in certain patient populations, to be used in conjunction with mammography. Breast MRI surveillanc e may be appropriate for women with more than 20% lifetime risk of developing breast cancer as deter mined by genetic testing, significant family history of the disease, or history of mantle radiation f or Hodgkins Disease. ACR Practice Guidelines 2008. TECHNICAL DOCUMENTATION: FINDING NUMBER: (1) ASSESSMENT: (1) JOB ID: [id number] [employer]- All Rights Reserved Reading location - IP/workstation name: [email or web address]
== END ==
LOC: WI 10:59
PROVIDERS: ATTEND Physician Assistant
DX: Z12.31 Encounter for screening mammogram for malignant neoplasm of breast (principal)
CPT/HCPCS: 77067

== ENCOUNTER 2018-12-02 10:35 | Day surgery (SDC) | payer BC ==
[2018-12-02] MEDS ORDERED: PROPOFOL INJ 200 MG/20 ML VIAL IV ONE (12:10)
--- NOTE | 2018-12-02 13:06 | EKG REPORT ---
SEVERITY:- NORMAL ECG - SINUS RHYTHM : Confirmed by: Mayank Murphy MD 02-Dec-2018 13:05:34
[2018-12-02] MEDS ORDERED: PROMETHAZINE HCL INJ 25 MG/1 ML VIAL IV PRN (13:17)
[2018-12-02] MEDS ORDERED: FENTANYL CITRATE INJ/PF 100 MCG/2 ML AMPUL IV PRN ×3 (13:17)
--- NOTE | 2018-12-02 15:21 | Operative Report ---
Operative Report DATE OF SURGERY: 12/02/18 Operative Report: Risks, benefits and alternatives of the procedure including the risk of bleeding, perforation requiring surgery have been explained to the patient in detail and informed consent has been obtained. Patient is placed in a left lateral decubital position. Timeout was called. Propofol medication is administered. Rectal examination is done which did not reveal any masses, tears or fissures. An Olympus videoscope was introduced into the patient's rectum. The scope was then carefully advanced all the way to the cecum. Cecum was identified by the usual anatomical landmarks including the ileocecal valve as well as the appendiceal office. Photodocumentation is obtained. The scope was then sequentially pulled back via the rest segments of the colon including the ascending colon, hepatic flexure, transverse colon, splenic flexure, descending colon finding to the rectosigmoid portions of the colon. Retroflexion maneuvers performed. PREOPERATIVE DIAGNOSIS: Personal history of polyp POSTOPERATIVE DIAGNOSIS: Diverticulosis. Right colon inflammation status post biopsy without collagenous colitis. Mild internal hemorrhoids OPERATION: Colonoscopy with biopsy SURGEON: CHAGO DE LOS SANTOS ANESTHESIA: LMAC TISSUE REMOVED OR ALTERED: As noted above. COMPLICATIONS: None. ESTIMATED BLOOD LOSS: None. INTRAOPERATIVE FINDINGS: As noted above. PROCEDURE: Patient tolerated the procedure well. No immediate postprocedure complications are noted. Patient is discharged in good condition. Discharge date 12/02/2018. Discharge diet: Regular. Discharge activity: Regular. 2 to 3-week follow-up to discuss findings. Patient is instructed to call the office or proceed to the emergency room should there be any further problems or questions. Wait on the pathology. If negative consider 7 to 10-year surveillance colonoscopy.
[2018-12-02 17:26] VITALS: BP 133/83
== END 2018-12-02 14:20 | disposition home or self-care (01) ==
LOC: OROUT 10:35
PROVIDERS: ATTEND Internal Medicine Gastroenterology
DX: K57.30 Diverticulosis of large intestine without perforation or abscess without bleeding (principal); K64.8 Other hemorrhoids; K52.9 Noninfective gastroenteritis and colitis, unspecified; D64.9 Anemia, unspecified; E78.5 Hyperlipidemia, unspecified; I10 Essential (primary) hypertension; Z87.891 Personal history of nicotine dependence; Z79.899 Other long term (current) drug therapy; Z79.51 Long term (current) use of inhaled steroids
CPT/HCPCS: 45380; 88305 ×2; 93005; 93010; 00812; J2704; 812

== ENCOUNTER → 2019-04-28 | Outpatient (CLI) | payer BC ==
--- NOTE | 2019-04-29 08:06 | WOMENS IMAGING REPORT ---
EXAM DESCRIPTION: BILAT SCREENING MAMMO W/CAD COMPLETED DATE/TIME: 04/28/2019 11:18 am REASON FOR STUDY: Z12.31 SCREENING MAMMO Z12.31 ENCNTR SCREEN MAMMOGRAM FOR MALIGNANT NEOPLASM OF B RE COMPARISON: Multiple since 2010 EXAM PARAMETERS: Standard craniocaudal and mediolateral oblique views of each breast recorded using digital acquisition. Read with the assistance of CAD. .[facility] - [employer] Version 9.2 LIMITATIONS: None. FINDINGS: No suspicious masses, suspicious calcifications or architectural distortion. No areas of c oncern. IMPRESSION: Negative MAMMOGRAM. BIRADS 1 BREAST DENSITY: b. There are scattered areas of fibroglandular density. BIRAD: ASSESSMENT: 1 NEGATIVE RECOMMENDATION: ROUTINE SCREENING Please continue yearly bilateral screening mammography/tomosynthesis in April 2020 COMMENT: The patient has been notified of the results by letter per SA requirements. Additional no tification policies are in place for contacting patient with suspicious or incomplete findings. Quality ID #225: The [employer] recommends an annual screening mammogram for women aged 40 years or over. This facility utilizes a reminder system to ensure that all patients receive reminder letters, and/or direct phone calls for appointments. This includes reminders for routine scr eening mammograms, diagnostic mammograms, or other Breast Imaging Interventions when appropriate. Th is patient will be placed in the appropriate reminder system. TECHNICAL DOCUMENTATION: FINDING NUMBER: (1) ASSESSMENT: (1) JOB ID: [id number] 2010 [employer]- All Rights Reserved Reading location - IP/workstation name: [email or web address]
== END ==
LOC: WI 10:40
PROVIDERS: ATTEND Physician Assistant
DX: Z12.31 Encounter for screening mammogram for malignant neoplasm of breast (principal)
CPT/HCPCS: 77067

== ENCOUNTER 2020-01-02 05:38 | Day surgery (SDC) | payer BC ==
[2019-12-29 11:03] LABS: ABSOLUTE EOSINOPHILS # (AUTO) 0.1 10^3/uL (0.0-0.6); ABSOLUTE LYMPHOCYTES (AUTO) 1.3 10^3/uL (0.5-4.7); ABSOLUTE MONOCYTES (AUTO) 0.5 10^3/uL (0.1-1.4); ABSOLUTE NEUT (AUTO) 3.6 10^3/uL (1.7-8.2); BASOPHILS % (AUTO) 0.8 % (0-2); EOSINOPHILS % (AUTO) 1.6 % (0-6); HEMATOCRIT 40.6 % (36.0-47.0); HEMOGLOBIN 13.9 g/dL (12.0-15.5); LYMPHOCYTES % (AUTO) 23.8 % (13-45); MEAN CORPUSCULAR HEMOGLOBIN 28.6 pg (27.0-33.4); MEAN CORPUSCULAR HGB CONC 34.4 g/dL (32.0-36.0); MEAN CORPUSCULAR VOLUME 83 fl (80-97); MONOCYTES % (AUTO) 9.5 % (3-13); PLATELET COUNT 243 10^3/uL (150-450); RED BLOOD COUNT 4.87 10^6/uL (3.72-5.28); RED CELL DISTRIBUTION WIDTH 13.5 % (11.5-14.0); SEGMENTED NEUTROPHILS % (AUTO) 64.3 % (42-78); TOTAL CELLS COUNTED % (AUTO) 100 %; WHITE BLOOD COUNT 5.6 10^3/uL (4.0-10.5)
[2019-12-29 11:33] LABS: ANION GAP 11 (5-19); BLOOD UREA NITROGEN 14 mg/dL (7-20); CALCIUM 10.2 mg/dL (8.4-10.2); CARBON DIOXIDE 29 mmol/L (22-30); CHLORIDE 104 mmol/L (98-107); GLUCOSE 74 mg/dL (75-110); POTASSIUM 4.1 mmol/L (3.6-5.0)
--- NOTE | 2019-12-29 18:11 | EKG REPORT ---
SEVERITY:- NORMAL ECG - SINUS BRADYCARDIA : Confirmed by: Franco Mantilla MD 29-Dec-2019 18:09:59
[~2020-01-02 05:38] MED LIST changes: +CEFAZOLIN 2 GM/D5W RTU 2 GM/50 ML RTUPB IV PRN; -LIDOCAINE 2% JELLY 5 ML TUBE ONE; +RINGERS SOLUTION,LACTATED 1,000 ML IV PRN
[2020-01-02] MEDS ORDERED: LIDOCAINE 0.5% INJ-PF (5 MG/ML) 50 ML SDV ONE (06:22)
[2020-01-02] MEDS ORDERED: MIDAZOLAM 2 MG/2 ML INJ ONE (06:23)
[2020-01-02] MEDS ORDERED: DEXAMETHASONE SOD PHOSPHATE INJ 4 MG/1 ML VIAL ONE (06:23)
[2020-01-02] MEDS ORDERED: FENTANYL CITRATE INJ/PF 250 MCG/5 ML AMPULE ONE (06:23)
[2020-01-02] MEDS ORDERED: FENTANYL CITRATE INJ/PF 100 MCG/2 ML AMPUL ONE (06:23)
[2020-01-02] MEDS ORDERED: ONDANSETRON HCL INJ/PF 4 MG/2 ML SDV ONE (06:23)
[2020-01-02] MEDS ORDERED: SUGAMMADEX SODIUM 200 MG/2 ML SDV IV ONE (06:24)
[2020-01-02] MEDS ORDERED: PROPOFOL INJ 200 MG/20 ML VIAL IV ONE (06:24)
[2020-01-02] MEDS ORDERED: CEFAZOLIN 2 GM/D5W RTU 2 GM/50 ML RTUPB IV ONE (07:11)
[2020-01-02] MEDS ORDERED: METHYLENE BLUE 50 MG/10 ML AMPULE ONE ×2 (07:26→08:36)
[2020-01-02] MEDS ORDERED: MEPERIDINE HCL/PF INJ 25 MG/1 ML DISP.SYRIN IV PRN ×2 (07:58→09:27)
[2020-01-02] MEDS ORDERED: MORPHINE SULFATE 10 MG/ML INJ IV PRN ×2 (07:58→09:27)
[2020-01-02] MEDS ORDERED: FENTANYL CITRATE INJ/PF 100 MCG/2 ML AMPUL IV PRN ×6 (07:58→09:27)
[2020-01-02] MEDS ORDERED: DIPHENHYDRAMINE HCL 50 MG/ML VIAL IV PRN ×2 (07:58→09:27)
[2020-01-02] MEDS ORDERED: ONDANSETRON HCL INJ/PF 4 MG/2 ML SDV IV PRN ×3 (07:58→09:27)
[2020-01-02] MEDS ORDERED: PROMETHAZINE HCL INJ 25 MG/1 ML VIAL IV PRN ×4 (07:58→09:27)
[2020-01-02] MEDS ORDERED: BUPIVACAINE INJ/PF LIPOSOME/PF 266 MG/20 ML SDV ONE (08:56)
[2020-01-02] MEDS ORDERED: HYDROMORPHONE HCL INJ/PF 2 MG/ML AMPULE IV PRN (09:14)
--- NOTE | 2020-01-02 09:28 | Operative Report ---
Nonrecallable Operative Report DATE OF SURGERY: 01/02/20 PREOPERATIVE DIAGNOSIS: Gastroesophageal reflux disease and achalasia with hiatal hernia POSTOPERATIVE DIAGNOSIS: Same OPERATION: Laparoscopic repair of diaphragmatic hernia Heller myotomy and Ivan fundoplication SURGEON: STEPHANIE LOCO SCIENTIFIC INVESTIGATOR: ELZA SANZ ANESTHESIA: GA TISSUE REMOVED OR ALTERED: None COMPLICATIONS: None ESTIMATED BLOOD LOSS: 25 cc PROCEDURE: Patient was brought to the operating room awake alert stable condition placed on the operative table supine position just under general anesthesia and intubated. After proper timeout site verification the procedure commenced. Veress needle was placed into the umbilicus and the abdomen was insufflated 6 L of CO2 gas a supraumbilical 10 mm incision was made with a 15 blade and a 10 mm port placed in the abdominal cavity intra-abdominal visualization revealed no evidence of a varies needle or trocar injury. 2 epigastric ports were placed a 10 and a 5 and a right and left lateral abdominal 5 mm port placed under direct vision. The liver retractor was placed the right lateral 5 mm incision and the left lobe of the liver was retracted anteriorly we turned attention to the stomach we identified the gastrohepatic omentum and took this down from the mid greater curvature to the angle of Hiss. The patient was noted to have a hiatal hernia with a sac this sac was excised from the phrenoesophageal ligament and the esophagus was mobilized up into the posterior mediastinum for approximately 6 to 8 cm. The GE junction was then slung with a Errol drain to aid in retraction. We then performed a Heller myotomy for approximately 6 cm above the GE junction to 2 cm onto the cardia of the stomach this was done with the LigaSure device and then with Bovie cautery using the hook cautery. We then placed an NG tube and fill the distal esophagus up with methylene blue dyed saline there is no injury to the mucosa of the esophagus. We then replaced the NG tube with a 56 Sinhala bougie dilator and passed gently into the stomach put. We then closed the posterior cy behind the esophagus with 2 stitches of [id number] placed 0 Surgidac. We then passed the fundus of the stomach posteriorly around the esophagus and fixed it to itself anteriorly and the lateral dissected esophageal muscle as well as the right crura this was done with 0 Surgidac suture. We then placed another stitch in the Ivan wrap approximately 1/2 cm distal to the first stitch to create approximately 1-1/2 to 2 cm long floppy Ivan wrap. We remove the 56 Sinhala bougie dilator. Hemostasis was noted to be intact the ports were removed the fascial defect in the left upper quadrant subcostal incision as well as the supraumbilical incision were closed with 0 Vicryl and skin was closed with intracuticular 4-0 Biosyn Steri-Strips completed the procedure. Estimated blood loss was 25 cc sponge needle counts were correct x2. ROGE Musa was present for the entire procedure for help with wound retraction wound closure.
[2020-01-02] MEDS: MORPHINE SULFATE 10 MG/ML INJ ONE ×4 (09:35→10:00)
[2020-01-02] MEDS ORDERED: HYDROMORPHONE HCL INJ/PF 2 MG/ML AMPULE ONE (11:39)
[2020-01-02] MEDS ORDERED: KETOROLAC TROMETHAMINE INJ/PF 30 MG/1 ML SDV ONE (12:20)
[2020-01-02] MEDS ORDERED: KETOROLAC TROMETHAMINE INJ/PF 30 MG/1 ML SDV IV ONE (12:30)
[2020-01-02] MEDS: FAMOTIDINE INJ/PF 20 MG/2 ML SDV IV SCH ×2 (13:32→21:12)
[2020-01-02] MEDS ORDERED: SUCCINYLCHOLINE CHLORIDE INJ 200 MG/10 ML VIAL ONE (14:21)
[2020-01-02] MEDS ORDERED: ROCURONIUM BROMIDE INJ 50 MG/5 ML VIAL IV ONE (14:21)
[2020-01-02] MEDS: MORPHINE SULFATE 10 MG/ML INJ IV PRN ×2 (15:43→20:05)
[2020-01-02] MEDS: DEXTROSE 5%-LACTATED RINGERS 1,000 ML IV PRN ×2 (15:51→23:24)
[2020-01-02] MEDS ORDERED: LORAZEPAM INJ 2 MG/1 ML VIAL IV ONE (21:00)
[2020-01-02] MEDS: METOPROLOL TARTRATE 50 MG TABLET PO SCH (22:05)
[2020-01-03] MEDS: MORPHINE SULFATE 10 MG/ML INJ IV PRN ×3 (00:17→10:03)
[2020-01-03 07:02] LABS: ABSOLUTE LYMPHOCYTES (AUTO) 1.5 10^3/uL (0.5-4.7); ABSOLUTE MONOCYTES (AUTO) 0.7 10^3/uL (0.1-1.4); ABSOLUTE NEUT (AUTO) 5.6 10^3/uL (1.7-8.2); BASOPHILS % (AUTO) 0.2 % (0-2); EOSINOPHILS % (AUTO) 0.1 % (0-6); HEMATOCRIT 33.9 % (36.0-47.0); HEMOGLOBIN 11.8 g/dL (12.0-15.5); LYMPHOCYTES % (AUTO) 18.8 % (13-45); MEAN CORPUSCULAR HEMOGLOBIN 29.1 pg (27.0-33.4); MEAN CORPUSCULAR HGB CONC 34.9 g/dL (32.0-36.0); MEAN CORPUSCULAR VOLUME 84 fl (80-97); MONOCYTES % (AUTO) 9.3 % (3-13); PLATELET COUNT 172 10^3/uL (150-450); RED BLOOD COUNT 4.06 10^6/uL (3.72-5.28); RED CELL DISTRIBUTION WIDTH 13.7 % (11.5-14.0); SEGMENTED NEUTROPHILS % (AUTO) 71.6 % (42-78); TOTAL CELLS COUNTED % (AUTO) 100 %; WHITE BLOOD COUNT 7.8 10^3/uL (4.0-10.5)
[2020-01-03 07:24] LABS: ANION GAP 7 (5-19); BLOOD UREA NITROGEN 11 mg/dL (7-20); CALCIUM 9.1 mg/dL (8.4-10.2); CARBON DIOXIDE 30 mmol/L (22-30); CHLORIDE 103 mmol/L (98-107); GLUCOSE 107 mg/dL (75-110); POTASSIUM 4.2 mmol/L (3.6-5.0)
--- NOTE | 2020-01-03 07:26 | Discharge Summary ---
Discharge Summary (SDC) - Discharge Final Diagnosis: Esophageal achalasia gastroesophageal reflux disease hiatal hernia Date of Surgery: 01/02/20 Discharge Date: 01/03/20 Condition: Good Prescriptions: Oxycodone HCl/Acetaminophen [Percocet 7.5-325 mg Tablet] 1 each PO Q6HP PRN #15 tablet PRN Reason: Referrals: DENISE CERVANTES PA-C [Primary Care Provider] - Discharge Diet: Full Liquids Respiratory Treatments at Home: Deep Breathing/Coughing Discharge Activity: Activity As Tolerated, No Lifting Over 10 Pounds Report the Following to Your Physician Immediately: Vomiting, Yellow Skin, Fever over 101 Degrees
[2020-01-03] MEDS: METOPROLOL TARTRATE 50 MG TABLET PO SCH (10:03)
[2020-01-03] MEDS: FAMOTIDINE INJ/PF 20 MG/2 ML SDV IV SCH (10:03)
[2020-01-03 10:10] VITALS: BP 123/70
== END 2020-01-03 11:23 | disposition home or self-care (01) ==
LOC: OROUT 05:38 → EDSTATUS 07:30 → 4W 13:25 → OROUT 01-03 11:23
PROVIDERS: ATTEND Surgery
DX: K22.0 Achalasia of cardia (principal); K21.9 Gastro-esophageal reflux disease without esophagitis; K44.9 Diaphragmatic hernia without obstruction or gangrene; Z03.818 Encounter for observation for suspected exposure to other biological agents ruled out; F41.9 Anxiety disorder, unspecified; J44.9 Chronic obstructive pulmonary disease, unspecified; I10 Essential (primary) hypertension; E66.9 Obesity, unspecified; M79.7 Fibromyalgia; Z86.711 Personal history of pulmonary embolism; G89.29 Other chronic pain; M54.9 Dorsalgia, unspecified; F32.9 Major depressive disorder, single episode, unspecified; E78.00 Pure hypercholesterolemia, unspecified; Z79.899 Other long term (current) drug therapy
CPT/HCPCS: 93005; 86900; 86901; 36415 ×2; 86850; 85025 ×2; 80048 ×2; 94799; 93010; 00790; 43279; U0003; J2250; J3490 ×3; J1100; J3010; J1885; J2270 ×2; J1170; J2060; J0330; J2405; J7121; J2704; S0028 ×2; J0690; C9290; Q9968; C9803; 790; 87635

== ENCOUNTER 2020-03-16 20:41 | Emergency (ER) | payer BC, OTHER ==
--- NOTE | 2020-03-16 21:04 | ER Document Report ---
ED Medical Screen (RME) - General Stated Complaint: CHEST PAIN Time Seen by Provider: 03/16/20 20:55 Primary Care Provider: DENISE CERVANTES PA-C [Primary Care Provider] - Follow up as needed Notes: Patient is a 59-year-old female presents to the ED with a chief complaint of chest pain started around 1900. She describes her pain and a squeezing sensation in her epigastric area. Patient states that she took aspirin and nitroglycerin, which helped her chest pain. She called EMS and EMS recommended that she go to the emergency department. States that she does not have pain in the morning. She is not currently on blood thinners. She has history of Pulmonary emboli in the past. Exam: S1, S2. Sinus Rhythm. TRAVEL OUTSIDE OF THE [place] IN LAST 30 DAYS: No - Related Data Allergies/Adverse Reactions: codeine [Codeine] Adverse Reaction (Mild, Verified 01/02/20 06:05) n/v Past Medical History - Past Medical History Cardiac Medical History: Reports: Hx Hypertension, Hx Pulmonary Embolism Denies: Hx Coronary Artery Disease, Hx Heart Attack Pulmonary Medical History: Reports: Hx Asthma, Hx Bronchitis, Hx COPD, Hx Pneumonia Neurological Medical History: Denies: Hx Cerebrovascular Accident, Hx Seizures Renal/ Medical History: Denies: Hx Peritoneal Dialysis GI Medical History: Reports: Hx Gastroesophageal Reflux Disease, Hx Hiatal Hernia Musculoskeltal Medical History: Reports Hx Arthritis, Reports Hx Fibromyalgia Psychiatric Medical History: Reports: Hx Depression Past Surgical History: Denies: Hx Hysterectomy, Hx Pacemaker - Immunizations Hx Diphtheria, Pertussis, Tetanus Vaccination: Yes Physical Exam - Vital signs Vitals: Temp Pulse Resp BP Pulse Ox 98.6 F 64 16 136/69 H 99 03/16/20 20:54 03/16/20 20:54 03/16/20 20:54 03/16/20 20:54 03/16/20 20:54 Course - Vital Signs Vital signs: Temp Pulse Resp BP Pulse Ox 98.6 F 64 16 136/69 H 99 03/16/20 20:59 03/16/20 20:54 03/16/20 20:54 03/16/20 20:54 03/16/20 20:54 Doctor's Discharge - Discharge Referrals: DENISE CERVANTES PA-C [Primary Care Provider] - Follow up as needed
[2020-03-16 21:25] LABS: ABSOLUTE BASOPHILS # (AUTO) 0.1 10^3/uL (0.0-0.2); ABSOLUTE EOSINOPHILS # (AUTO) 0.2 10^3/uL (0.0-0.6); ABSOLUTE MONOCYTES (AUTO) 0.6 10^3/uL (0.1-1.4); BASOPHILS % (AUTO) 0.7 % (0-2); EOSINOPHILS % (AUTO) 2.3 % (0-6); HEMATOCRIT 41.8 % (36.0-47.0); MEAN CORPUSCULAR HEMOGLOBIN 27.7 pg (27.0-33.4); MEAN CORPUSCULAR HGB CONC 33.6 g/dL (32.0-36.0); MEAN CORPUSCULAR VOLUME 83 fl (80-97); PLATELET COUNT 246 10^3/uL (150-450); RED BLOOD COUNT 5.07 10^6/uL (3.72-5.28); RED CELL DISTRIBUTION WIDTH 13.7 % (11.5-14.0); TOTAL CELLS COUNTED % (AUTO) 100 %; WHITE BLOOD COUNT 8.9 10^3/uL (4.0-10.5)
[2020-03-16 21:38] LABS: ALBUMIN 4.7 g/dL (3.5-5.0); ALKALINE PHOSPHATASE 96 U/L (38-126); ANION GAP 7 (5-19); ASPARTATE AMINO TRANSFERASE 24 U/L (14-36); BILIRUBIN,DIRECT 0.1 mg/dL (0.0-0.4); BILIRUBIN,TOTAL 0.6 mg/dL (0.2-1.3); BLOOD UREA NITROGEN 13 mg/dL (7-20); CALCIUM 9.9 mg/dL (8.4-10.2); CARBON DIOXIDE 33 mmol/L (22-30); CHLORIDE 101 mmol/L (98-107); CREATINE KINASE 70 U/L (30-135); GLUCOSE 98 mg/dL (75-110); POTASSIUM 4.5 mmol/L (3.6-5.0); TOTAL PROTEIN 7.8 g/dL (6.3-8.2)
[2020-03-16 21:44] LABS: INTERNATIONAL RATION (INR) 0.87
[2020-03-16 21:45] LABS: PARTIAL THROMBOPLASTIN TIME 31.6 SEC (23.5-35.8)
--- NOTE | 2020-03-16 22:10 | RADIOLOGY REPORT (SQ) ---
EXAM DESCRIPTION: XR CHEST 2 VIEWS COMPLETED DATE/TME: 03/16/2020 21:21 CLINICAL HISTORY: 59 years, Female, chest pain COMPARISON: 05/20/2017 chest NUMBER OF VIEWS: 2 TECHNIQUE: Frontal and lateral views of the chest LIMITATIONS: None. FINDINGS: Heart size is normal. Chronic pleural thickening in the lateral left lung base consistent with chronic tiny left effusion and/or pleural thickening. Lungs are otherwise clear. No pneumothorax. IMPRESSION: No acute cardiopulmonary process. Chronic blunting of the left costophrenic angle copyright 2010 [employer]- All Rights Reserved
--- NOTE | 2020-03-16 22:38 | RADIOLOGY REPORT (SQ) ---
EXAM DESCRIPTION: CT CHEST ANGIOGRAPHY WITH IV CONTRAST COMPLETED DATE/TME: 03/16/2020 22:01 CLINICAL HISTORY: 59 years, Female, r/o PE COMPARISON: 11/16/2017 CT TECHNIQUE: [id number] Images stored on PACS. All CT scanners at this facility use dose modulation, iterative reconstruction, and/or weight based dosing when appropriate to reduce radiation dose to as low as reasonably achievable (ALARA). Axial CTA images with coronal and sagittal MIPS [facility]: Dose Right [facility]: CareDose [facility]: Dose Right [facility]: Teradose 4D [facility]: [employer] LIMITATIONS: None. FINDINGS: The mediastinal vasculature enhances normally. No filling defect to suggest pulmonary embolus. Negative for thoracic aortic aneurysm or dissection. Small to moderate-sized hiatal hernia. Small pericardial effusion, also present previously. Limited evaluation of the upper abdomen is unremarkable. No mediastinal or hilar adenopathy. Osseous structures are grossly intact. No pneumothorax. Airways are patent. Minimal scarring left lung base. Lungs are otherwise clear IMPRESSION: Negative for pulmonary embolus. Small pericardial effusion, also present previously. [id number] hiatal hernia TECHNICAL DOCUMENTATION: Quality ID # 436: Final reports with documentation of one or more dose reduction techniques (e.g., Automated exposure control, adjustment of the mA and/or kV according to patient size, use of iterative reconstruction technique) copyright 2011 [employer]- All Rights Reserved
[2020-03-16] MEDS ORDERED: LIDOCAINE 2% VISCOUS SOLN 15 ML UDCUP PO ONE (23:30)
[2020-03-16] MEDS ORDERED: METOCLOPRAMIDE HCL ORAL SOLN 10 MG/10 ML UDCUP PO ONE (23:30)
[2020-03-16] MEDS ORDERED: MAG HYDROX/AL HYDROX/SIMETH SUSP 30 ML UDCUP PO ONE (23:30)
--- NOTE | 2020-03-16 23:42 | ER Document Report ---
ED General - General Chief Complaint: Chest Pain Stated Complaint: CHEST PAIN Time Seen by Provider: 03/16/20 20:55 Primary Care Provider: DENISE CERVANTES PA-C [Primary Care Provider] - Follow up as needed Mode of Arrival: Ambulatory Information source: Patient Notes: 59-year-old female presented to ED for complaint of chest pain that started around 1900 today.. She states that the pain was squeezing in her epigastric area she took aspirin and nitroglycerin which helped. She called EMS and EMS recommended she come to the emergency room. She states she does not have any pain at the time I am seeing her she is not on any blood thinners. She states she did have a Ivan fundoplication in December. She states she did have a negative stress test in the summertime. She did have a history of pulmonary emboli in the past but it is not had any symptoms recently she is not on any blood thinners. She does have a history of acid reflux. She states she has been having intermittent chest pain for the last several weeks. She states she had 2 days in a row last week and then when she had it again today she decided to come into the emergency room. Constitutional: Negative for fever. HENT: Negative for sore throat. Eyes: Negative for visual changes. Cardiovascular: She states she was having chest pain that runs up her throat into her neck through to her back. She states she had a surgery to repair her hiatal hernia in December and she should not be still having this pain in her esophagus. She states she is burping up a lot of gas and she is feels like she constantly has to burp and is unable to burp. She states she is not having the pain now she was having the pain earlier Respiratory: Negative for shortness of breath. Gastrointestinal: Epigastric pain Genitourinary: Negative for dysuria. Musculoskeletal: Negative for back pain. Skin: Negative for rash. Neurological: Negative for headaches, weakness or numbness. 10 point ROS negative except as marked above and in HPI. VITAL SIGNS: Within normal limits. GENERAL: No acute distress, non-toxic appearance. HEAD: Normal with no signs of head trauma. EYES: PERRLA, EOMI, conjunctiva normal, no discharge. EARS: Hearing grossly intact. NOSE: Normal. THROAT: Oropharynx is normal. NECK: Normal range of motion, no tenderness, supple, no lymphadenopathy, No adenopathy, no JVD. CHEST: Clear breath sounds bilaterally. No wheezes, rales, or rhonchi. CARDIAC: Regular rate and rhythm. S1 and S2, without murmurs, gallops, or rubs. VASCULAR: No Edema. Peripheral pulses normal and equal in all extremities. ABDOMEN: Normal and soft with no tenderness, no masses or pulsatile masses. GASTROINTESTINAL: Hyperactive bowel sounds GENITOURINARY: Normal, No tenderness LYMPATHTIC: No lymphadenopathy noted. MUSCULOSKELETAL: Good range of motion of all major joints. Extremities without clubbing, cyanosis or edema. NEUROLOGICAL: Alert and oriented x 3. No focal sensory or strength deficits. Speech normal. Follows commands appropriately. PSYCHIATRIC: Normal Affect, judgement and mood. SKIN: Normal appearance with no rashes or lesions. TRAVEL OUTSIDE OF THE [place] IN LAST 30 DAYS: No - HPI Onset: Other - 2 times last week and then started again tonight better now since she took aspirin and nitro Onset/Duration: Intermittent Quality of pain: Sharp Severity: None - None now but states it was very sharp earlier Pain Level: Denies Associated symptoms: Chest pain - Substernal esophageal up to the neck and through to the back no pain now Exacerbated by: Other - While cooking supper Relieved by: Denies Similar symptoms previously: Yes Recently seen / treated by doctor: No - Related Data Allergies/Adverse Reactions: codeine [Codeine] Adverse Reaction (Mild, Verified 01/02/20 06:05) n/v Home Medications: Ntg. clonazepam. meloxicam. iron. metoprolol. metaxalone. atorvastatin. pregablin. vilbyrd. ambien Past Medical History - General Information source: Patient - Social History Smoking Status: Never Smoker Chew tobacco use (# tins/day): No Frequency of alcohol use: None Drug Abuse: None Lives with: Family Family History: Reviewed & Not Pertinent Patient has suicidal ideation: No Patient has homicidal ideation: No - Past Medical History Cardiac Medical History: Reports: Hx Hypercholesterolemia, Hx Hypertension, Hx Pulmonary Embolism Pulmonary Medical History: Reports: Hx Asthma, Hx Bronchitis, Hx COPD, Hx Pneumonia EENT Medical History: Reports: None Neurological Medical History: Reports: None Endocrine Medical History: Reports: None Renal/ Medical History: Reports: None Malignancy Medical History: Reports: None GI Medical History: Reports: Hx Gastroesophageal Reflux Disease, Hx Hiatal Hernia, Hx Endoscopy Musculoskeletal Medical History: Reports Hx Arthritis, Reports Hx Fibromyalgia Skin Medical History: Reports None Psychiatric Medical History: Reports: Hx Depression Traumatic Medical History: Reports: None Infectious Medical History: Reports: None Past Surgical History: Reports: Other - Repair of hiatal hernia Ivan fundopl ication - Immunizations Hx Diphtheria, Pertussis, Tetanus Vaccination: Yes Hx Pneumococcal Vaccination: 02/23/14 Physical Exam - Vital signs Vitals: Temp Pulse Resp BP Pulse Ox 98.6 F 64 16 136/69 H 99 03/16/20 20:54 03/16/20 20:54 03/16/20 20:54 03/16/20 20:54 03/16/20 20:54 Course - Re-evaluation Re-evalutation: 03/17/20 03:54 Discussed exam and to negative troponins as well as a negative stress test in the spring with . Patient states she was told by her technical training manager that he thought it was just her reflux. She states she just had a hiatal hernia repair in December. A CT a as well as labs were completed and reports given to patient to follow-up with her GI specialist as well as her technical training manager. She was informed that she should return to the ED for any increase in cardiac pain or if her chest pain returns. She was given a GI cocktail while in the emergency room for the constant feeling like she has to burp. She states this was decreased with the GI cocktail. - Vital Signs Vital signs: Temp Pulse Resp BP Pulse Ox 97.6 F 64 14 118/66 95 03/17/20 02:30 03/16/20 20:54 03/17/20 02:29 03/17/20 02:30 03/17/20 02:29 - Laboratory Results Result Diagrams: 03/16/20 21:07 03/16/20 21:07 Laboratory Results Interpreted: 03/16/20 21:07 Carbon Dioxide 33 H Critical Laboratory Results Reviewed: No Critical Results - Radiology Results Critical Radiology Results Reviewed: No Critical Results Discharge - Discharge Clinical Impression: Chest pain Qualifiers: Chest pain type: unspecified Qualified Code(s): R07.9 - Chest pain, unspecified Condition: Stable Disposition: HOME, SELF-CARE Additional Instructions: CHEST PAIN OF UNCLEAR CAUSE: The exact cause of your chest pain isn't clear. Fortunately, there is no evidence of a dangerous medical condition. Further testing may be required to find the source of the pain. Most often, we find that this pain is coming from the chest wall -- the muscles or rib joints in the chest. But chest pain can come from the lung and lung lining, the esophagus, the heart valves or heart lining, and even the stomach or gallbladder. Rest. Eat lightly until the pain is gone. We may prescribe medicine for pain and inflammation. You should call the physician immediately if the pain radiates to the shoulder, jaw or arms; if you start to run a fever or develop a cough; or if you develop shortness of breath, or other new or alarming symptoms. NORMAL EXAM AND WORKUP: At this time, your examination and workup show no significant abnormality. No significant abnormal physical findings were noted. All laboratory, EKG, and imaging (x-ray, CT scans, ultrasound) studies that were ordered show no significant abnormality. Although your examination and all studies that were ordered showed no significant abnormal finding, there are no examinations and no studies that are 100% accurate. There is always the possibility that some abnormality could exist and not be detected with physical examination or within the limits and capabilities of laboratory and other studies. You should return or follow up as you were instructed on your visit today for further evaluation if your symptoms do not resolve. ACID REFLUX DISEASE (GERD): Gastro-Esophageal Reflux Disease (GERD) is caused by stomach acid refluxing back up into the esophagus. The valve at the end of the esophagus may be weak. This is common in persons with a hiatal hernia. GERD symptoms can include ind igestion, chest pain, heartburn, or food "sticking." Certain foods, alcohol, and aspirin can make GERD worse. Treatment depends on the severity. Usually, antacids or acid-suppressing medicines are used. When the esophagus is acutely inflamed, the physician will often prescribe membrane-protective drugs such as Carafate. Some patients benefit from medication such as Reglan that tightens the valve at the top of the stomach. Avoid those foods that bring on your symptoms. For many people, these foods are coffee, chocolate, onions, garlic, and carbonated drinks. Don't use alcohol, aspirin, caffeine, or tobacco. Don't eat late at night -- within 4 hours of bedtime. Don't over-eat. If necessary, elevate the head of your bed about 4 inches so that stomach acid will not roll up into your esophagus. Call the doctor if you develop severe chest pain, inability to swallow fluids, fever, or worsening symptoms. NITRATES: Nitroglycerin and related longer-acting nitrate medications are used to prevent or treat attacks of angina. These medicines dilate blood vessels, decreasing the work of the heart, and improving its supply of oxygen. Many different forms are available, including sublingual tablets (used under the tongue), sprays, skin patches, and long-acting pills. If the particular form of medication you have been given is not working well for you, contact your doctor. Long-acting forms: Take exactly as prescribed. Sudden stopping of medication can provoke increased attacks. Sublingual tabs or spray: A headache will usually occur with use. Sit or lie while waiting for the pain to go away. If angina doesn't respond to three doses (five minutes apart), call for emergency assistance. Reglan (Metoclopramide) Reglan has been prescribed. This medicine affects the stomach and intestines. It can be used to treat nausea and vomiting, to prevent reflux of stomach acid up into the esophagus, or to increase the contractions of the s tomach and intestines. It is often prescribed for esophagitis, and for paralysis of the stomach in diabetics. Reglan can cause either mild restlessness or drowsiness. You should contact the doctor at once if you become extremely restless, anxious, or cannot sleep, or if you develop uncontrollable motions of the lips, tongue, or jaw. Do not take alcohol with this medicine. Do not drive or operate machinery until you have been taking this medicine long enough to know how it affects you. Call the doctor if you develop abdominal pains, lightheadedness, black stool, or blood in the stool or vomitus. Antacid Therapy You have been instructed to start antacid therapy. Antacids directly neutralize stomach acid. This is useful for acid irritation of the esophagus, gastritis, and ulcers. You should take two tablespoons of antacid one hour after each meal and three hours after each meal. If you are not eating, take the antacid every two hours. If you are using a concentrate (such as Maalox TC), use only one tablespoon. Many antacids affect the bowels. The most common problem is diarrhea. In this case, a pure aluminum hydroxide antacid (such as AlternaGel) can be substituted for some or all doses. If the problem is constipation, add a teaspoon of Milk of Magnesia to each dose. Call the doctor if you experience continued diarrhea or constipation, or if you develop lightheadedness, bloody stool or vomitus, severe abdominal pain, or black stool. I have given you a copy of the lab results your CT of the chest your chest x- ray. These follow-up with your technical training manager and your breast puller. I have spoken with the physician covering me. He recommended you try activated charcoal tablets. FOLLOW-UP CARE: If you have been referred to a physician for follow-up care, call the physicians office for an appointment as you were instructed or within the next two days. If you experience worsening or a significant change in your symptoms, notify the physician immediately or return to the Emergency Department at any time for re-evaluation. Forms: Elevated Blood Pressure Referrals: DENISE CERVANTES PA-C [Primary Care Provider] - Follow up as needed
--- NOTE | 2020-03-17 00:23 | EKG REPORT ---
SEVERITY:- NORMAL ECG - SINUS RHYTHM : Confirmed by: Mayank Murphy MD 17-Mar-2020 00:22:35
[2020-03-17 02:41] VITALS: BP 118/66
== END 2020-03-17 02:41 | disposition home or self-care (01) ==
LOC: ER 20:41
DX: I31.3 Pericardial effusion (noninflammatory) (principal); K44.9 Diaphragmatic hernia without obstruction or gangrene; R07.2 Precordial pain; R10.13 Epigastric pain; E78.00 Pure hypercholesterolemia, unspecified; I10 Essential (primary) hypertension; J44.9 Chronic obstructive pulmonary disease, unspecified; Z79.1 Long term (current) use of non-steroidal anti-inflammatories (NSAID); Z79.899 Other long term (current) drug therapy; Z87.01 Personal history of pneumonia (recurrent); Z98.890 Other specified postprocedural states; Z86.711 Personal history of pulmonary embolism; Z87.19 Personal history of other diseases of the digestive system
CPT/HCPCS: 93005; 99285; 36415; 82550; 83735; 85025; 85610; 85730; 80053; 84484; 71046; 71275; 93010; J3490